=== PATIENT | female | born 1935 | race Caucasian/White ===

== ENCOUNTER 2016-12-24 12:50 | Inpatient (IN) | payer MEDICARE ==
[2016-12-24] MEDS ORDERED: Sodium Chloride 0.9% 10 ML Syringe FLUSH PRN (12:59)
--- NOTE | 2016-12-24 13:22 | EDM.PDOC ---
ED HPI GENERAL MEDICAL PROBLEM - General Chief Complaint: Neuro Symptoms/Deficits Stated Complaint: [facility] Time Seen by Provider: 12/24/16 12:50 Source of Information: Reports: EMS, [facility] Records History Limitations: Reports: Physical Impairment - History of Present Illness INITIAL COMMENTS - FREE TEXT/NARRATIVE: 81-year-old female presents via the [place] ambulance service from [facility] for a possible stroke. The patient's does not respond to questioning. History is obtained from EMS staff and long-term staff. I spoke with [facility] RN Marissa. She was taking care of the patient today. States that this morning she got up for breakfast between 7 and 8 and ate breakfast okay. She normally pivot transfers and does this without difficulty. They did not appreciate any motor deficits this morning. She states that she took her morning medications. They did feel that she was more congested than normal. They then laid her down for nap. Around 11:30 the INJECTION PRESS OPERATOR alerted Marissa to her decrease in motor function. She was sitting on the bed but they felt that they observed right-sided weakness. They also noticed a droop to her face. She would not follow commands and could not squeeze the nurse's fingers. Her speech was garbled. She was crying. States that her baseline is normally alert 2 and she is able to state her name. They felt that her weakness was a significant decline from her normal status. They then contacted Dr. Orlando who instructed them to bring and to the ER. No vomiting or diarrhea. Nursing staff reports that she normally has some incontinence but reports that around 11:30 she had a large amount of urinary incontinence which is abnormal for her. Vitals at the long-term included a temp of 100.4, blood pressure 120/69, heart rate is 78, respirations of 16 and 90% 2% on room air. Patient takes an 81 mg aspirin daily. Patient has a history of Alzheimer's and dementia. She is a DNR/DNI. - Related Data Allergies Allergy/AdvReac Type Severity Reaction Status Date / Time No Known Allergies Allergy Verified 02/02/15 09:55 ED ROS GENERAL - Review of Systems Review Of Systems: See Below (obtained from [facility] staff and EMS) Constitutional: Reports: Fever (100.4 at long-term), Weakness (right sided) GI/Abdominal: Denies: Diarrhea, Vomiting : Reports: Incontinence Neurological: Reports: Trouble Speaking (garbled speech), Weakness (right sided) , Other (right sided facial droop) ED EXAM, NEURO - Physical Exam Exam: See Below General Appearance: Alert, WD/WN, Anxious Eye Exam: Bilateral Eye: PERRL Respiratory/Chest: No Respiratory Distress, Lungs Clear, Normal Breath Sounds Cardiovascular: Normal Peripheral Pulses, Regular Rate, Rhythm, No Murmur GI/Abdominal: Soft, Non-Tender Neurological: Alert, Straight Leg Raise (L) (unable to preform), Straight Leg Raise (R) (unable to preform), Other (weatherization and housing inspector 5/5 right and 3/5 left; right sided facial droop ; unable to follow commands). No: Babinski Psychiatric: Anxious Skin Exam: Warm, Dry EKG INTERPRETATION EKG Date: 12/24/16 Course - Vital Signs Last Recorded V/S: Last Vital Signs Temp 36.9 C 12/24/16 12:59 Pulse 77 12/24/16 12:59 Resp 28 H 12/24/16 12:59 BP 115/62 12/24/16 12:59 Pulse Ox 93 L 12/24/16 12:59 - Orders/Labs/Meds Orders: Active Orders 24 hr Category Date Time Status Cardiac Monitoring [RC] . DIRECTED Care 12/24/16 12:59 Active EKG Documentation Completion [RC] STAT Care 12/24/16 12:59 Active Peripheral IV Care [RC] . DIRECTED Care 12/24/16 12:59 Active Chest 1V Frontal [CR] Stat Exams 12/24/16 12:59 Taken CULTURE BLOOD [BC] Stat Lab 12/24/16 13:20 Received CULTURE BLOOD [BC] Stat Lab 12/24/16 13:30 Received CULTURE URINE [RM] Stat Lab 12/24/16 14:16 Received INR,PT,PROTHROMBIN TIME [COAG] Stat Lab 12/24/16 13:54 Ordered PTT,PARTIAL THROMBOPLSTIN TIME [COAG] Stat Lab 12/24/16 13:54 Ordered Sodium Chloride 0.9% [Normal Saline] 1,000 ml Med 12/24/16 13:23 Active IV ONETIME Sodium Chloride 0.9% [Saline Flush] Med 12/24/16 12:59 Active 10 ml FLUSH ASDIRECTED PRN Blood Culture x2 Reflex Set [OM.PC] Stat Oth 12/24/16 12:59 Ordered Peripheral IV Insertion Adult [OM.PC] Routine Oth 12/24/16 12:58 Ordered Medication Orders Sodium Chloride (Normal Saline) 1,000 mls @ 100 mls/hr IV ONETIME ONE Stop: 12/24/16 23:22 Last Admin: 12/24/16 14:01 Dose: 100 mls/hr Sodium Chloride (Saline Flush) 10 ml FLUSH ASDIRECTED PRN PRN Reason: Keep Vein Open Last Admin: 12/24/16 14:02 Dose: 10 ml Labs: Laboratory Tests 12/24/16 12/24/16 12/24/16 Range/Units 13:04 13:30 13:30 WBC (3.98-10.04) K/mm3 RBC (3.98-5.22) M/mm3 Hgb (11.2-15.7) gm/L Hct (34.1-44.9) % MCV (79.4-94.8) fl MCH (25.6-32.2) pg MCHC (32.2-35.5) g/dl RDW Std Deviation (36.4-46.3) fL Plt Count (182-369) K/mm3 MPV (9.4-12.3) fl Neutrophils % (Manual) (40-60) % Band Neutrophils % (0-10) % Lymphocytes % (Manual) (20-40) % Atypical Lymphs % % Monocytes % (Manual) (2-10) % Eosinophils % (Manual) (0.7-5.8) % Basophils % (Manual) (0.1-1.2) Platelet Estimate RBC Morph Comment Sodium 139 (136-145) mEq/L Potassium 4.5 (3.5-5.1) mEq/L Chloride 102 (98-107) mEq/L Carbon Dioxide 29 (21-32) mEq/L Anion Gap 12.5 (5-15) BUN 19 H (7-18) mg/dL Creatinine 1.3 H (0.55-1.02) mg/dL Est Cr Clr Drug Dosing 28.67 mL/min Estimated GFR (MDRD) 39 (>60) mL/min BUN/Creatinine Ratio 14.6 (14-18) Glucose 90 (83-115) mg/dL POC Glucose 84 (83-110) mg/dL Lactic Acid 2.1 H (0.4-2.0) mmol/L Calcium 8.9 (8.5-10.1) mg/dL Total Bilirubin 0.7 (0.2-1.0) mg/dL AST 20 (15-37) U/L ALT 28 (14-59) U/L Alkaline Phosphatase 107 (46-116) U/L Troponin I < 0.017 (0.00-0.056) ng/mL C-Reactive Protein 2.8 H* (<1.0) mg/dL B-Natriuretic Peptide (0-100) pg/mL Total Protein 6.9 (6.4-8.2) g/dl Albumin 3.3 L (3.4-5.0) g/dl Globulin 3.6 gm/dL Albumin/Globulin Ratio 0.9 L (1-2) Urine Color (Yellow) Urine Appearance (Clear) Urine pH (5.0-8.0) Ur Specific [place] (1.005-1.030) Urine Protein (Negative) Urine Glucose (UA) (Negative) Urine Ketones (Negative) Urine Occult Blood (Negative) Urine Nitrite (Negative) Urine Bilirubin (Negative) Urine Urobilinogen (0.2-1.0) Ur Leukocyte Esterase (Negative) Urine RBC (0-5) /hpf Urine WBC (0-5) /hpf Ur Epithelial Cells (0-5) /hpf Urine Bacteria (FEW) /hpf Urine Mucus (FEW) /hpf 12/24/16 12/24/16 12/24/16 Range/Units 13:30 13:30 14:16 WBC 8.49 (3.98-10.04) K/mm3 RBC 5.03 (3.98-5.22) M/mm3 Hgb 14.8 (11.2-15.7) gm/L Hct 45.5 H (34.1-44.9) % MCV 90.5 (79.4-94.8) fl MCH 29.4 (25.6-32.2) pg MCHC 32.5 (32.2-35.5) g/dl RDW Std Deviation 43.6 (36.4-46.3) fL Plt Count 207 (182-369) K/mm3 MPV 9.3 L (9.4-12.3) fl Neutrophils % (Manual) 75 H (40-60) % Band Neutrophils % 2 (0-10) % Lymphocytes % (Manual) 12 L (20-40) % Atypical Lymphs % 0 % Monocytes % (Manual) 8 (2-10) % Eosinophils % (Manual) 2 (0.7-5.8) % Basophils % (Manual) 1 (0.1-1.2) Platelet Estimate Adequate RBC Morph Comment Normal Sodium (136-145) mEq/L Potassium (3.5-5.1) mEq/L Chloride (98-107) mEq/L Carbon Dioxide (21-32) mEq/L Anion Gap (5-15) BUN (7-18) mg/dL Creatinine (0.55-1.02) mg/dL Est Cr Clr Drug Dosing mL/min Estimated GFR (MDRD) (>60) mL/min BUN/Creatinine Ratio (14-18) Glucose (83-115) mg/dL POC Glucose (83-110) mg/dL Lactic Acid (0.4-2.0) mmol/L Calcium (8.5-10.1) mg/dL Total Bilirubin (0.2-1.0) mg/dL AST (15-37) U/L ALT (14-59) U/L Alkaline Phosphatase (46-116) U/L Troponin I (0.00-0.056) ng/mL C-Reactive Protein (<1.0) mg/dL B-Natriuretic Peptide 200 H (0-100) pg/mL Total Protein (6.4-8.2) g/dl Albumin (3.4-5.0) g/dl Globulin gm/dL Albumin/Globulin Ratio (1-2) Urine Color Yellow (Yellow) Urine Appearance Clear (Clear) Urine pH 7.0 (5.0-8.0) Ur Specific [place] 1.020 (1.005-1.030) Urine Protein Negative (Negative) Urine Glucose (UA) Negative (Negative) Urine Ketones Negative (Negative) Urine Occult Blood Negative (Negative) Urine Nitrite Negative (Negative) Urine Bilirubin Negative (Negative) Urine Urobilinogen 0.2 (0.2-1.0) Ur Leukocyte Esterase Negative (Negative) Urine RBC 0-5 (0-5) /hpf Urine WBC 0-5 (0-5) /hpf Ur Epithelial Cells 0-5 (0-5) /hpf Urine Bacteria Rare (FEW) /hpf Urine Mucus Not seen (FEW) /hpf Meds: Medications Generic Name Dose Route Start Last Admin Trade Name Justine PRN Reason Stop Dose Admin Sodium Chloride 1,000 mls @ 100 mls/hr 12/24/16 13:23 12/24/16 14:01 Normal Saline IV 12/24/16 23:22 100 mls/hr ONETIME ONE Administration Sodium Chloride 10 ml 12/24/16 12:59 12/24/16 14:02 Saline Flush FLUSH 10 ml ASDIRECTED PRN Administration Keep Vein Open - Radiology Interpretation Free Text/Narrative:: CT of the head without contrast impression per Dr. Salter: 1. Senescent change as described. 2. Findings within the inferior left mastoid sinus most likely incidental 3. No acute intracranial abnormality is identified on noncontrast head Ct study. - Re-Assessments/Exams Free Text/Narrative Re-Assessment/Exam: 12/24/16 13:45 At this time the patient's neighbor and power of employment attorney Jesenia are present at the bedside. I reviewed the CT results with Jesenia. It does appear that she more than likely had a stroke. Unfortunately, her last known well time is somewhere between 7 and 8 she is out of window for thrombolytic therapy. Our options are to go to [place] to the stroke center or stay in [place]. Jesenia states that jen would not want to go to [place] for further intervention. She does not want any drastic medical treatment. Jesenia would like her to be admitted to our facility for management and care of her symptoms. 12/24/16 15:13 I have reexamined the patient. She is now responding more appropriately. She correctly states her name. She correctly identifies that she is in the hospital. Her weatherization and housing inspector is improved substantially on the left and is about 4.5 on the left and 5 out of 5 on the right. She is now able to follow commands. She lifts both of her legs on command and is able to hold them for several seconds. 12/24/16 15:51 Lab studies have returned. white blood cell count 8.49, hemoglobin 14.8 and platelets 208. Lactic acid mildly elevated at 2.1. Troponin within normal limits at less than 0.017. BNP 200. CRPmildly elevated 2.8. Sodium 139, potassium 4.5 chloride 102. Glucose 90. Creatinine 1.3. UA is negative for any blood, protein, nitrites, leukocytes or glucose. Awaiting PIT, INR and PTT - lab called and stated the analyzer is found we'll be several hours for these lab studies. I have spoken with Dr. Johns regarding the patient. They do not want intervention at [place]. The patient is now improving. It appears that she is more of a TIA than a stroke. We will admit her to [facility]. Dr. Johns accepting. Departure - Departure Time of Disposition: 15:54 Disposition: Admitted As Inpatient 65 Condition: Fair Clinical Impression: TIA (transient ischemic attack) - Discharge Information Forms: ED Department Discharge Additional Instructions: Patient admitted to the med/surg floor. Dr. Johns accepting. - My Orders Last 24 Hours: My Active Orders 12/24/16 12:58 Peripheral IV Insertion Adult [OM.PC] Routine 12/24/16 12:59 Cardiac Monitoring [RC] . DIRECTED EKG Documentation Completion [RC] STAT Peripheral IV Care [RC] . DIRECTED Chest 1V Frontal [CR] Stat Sodium Chloride 0.9% [Saline Flush] 10 ml FLUSH ASDIRECTED PRN Blood Culture x2 Reflex Set [OM.PC] Stat 12/24/16 13:20 CULTURE BLOOD [BC] Stat 12/24/16 13:23 Sodium Chloride 0.9% [Normal Saline] 1,000 ml IV ONETIME 12/24/16 13:30 CULTURE BLOOD [BC] Stat 12/24/16 13:54 INR,PT,PROTHROMBIN TIME [COAG] Stat PTT,PARTIAL THROMBOPLSTIN TIME [COAG] Stat 12/24/16 14:16 CULTURE URINE [RM] Stat - Assessment/Plan Last 24 Hours: My Active Orders 12/24/16 12:58 Peripheral IV Insertion Adult [OM.PC] Routine 12/24/16 12:59 Cardiac Monitoring [RC] . DIRECTED EKG Documentation Completion [RC] STAT Peripheral IV Care [RC] . DIRECTED Chest 1V Frontal [CR] Stat Sodium Chloride 0.9% [Saline Flush] 10 ml FLUSH ASDIRECTED PRN Blood Culture x2 Reflex Set [OM.PC] Stat 12/24/16 13:20 CULTURE BLOOD [BC] Stat 12/24/16 13:23 Sodium Chloride 0.9% [Normal Saline] 1,000 ml IV ONETIME 12/24/16 13:30 CULTURE BLOOD [BC] Stat 12/24/16 13:54 INR,PT,PROTHROMBIN TIME [COAG] Stat PTT,PARTIAL THROMBOPLSTIN TIME [COAG] Stat 12/24/16 14:16 CULTURE URINE [RM] Stat
[2016-12-24] MEDS ORDERED: Sodium Chloride 0.9% 1,000 ML IV ONE (13:23)
--- NOTE | 2016-12-24 13:34 | CT ---
Head CT Technique: Multiple axial sections through the brain were obtained. Intravenous contrast was not utilized. Comparison: No previous intracranial imaging is available. Findings: Ventricles along with basal cisterns and sulci over the convexities are moderately prominent. Diminished density is seen within the periventricular and subcortical white matter which has a pattern typical of small vessel ischemic demyelination change. Focal atrophy is seen within the posterior left parietal region felt compatible with small old infarct. No other abnormal parenchymal densities are seen. No evidence of intracranial hemorrhage. No midline shift or mass effect is seen. Atherosclerotic calcification is seen within the carotid siphon. Bone window settings were reviewed which shows minimal mucosal thickening inferiorly within the left mastoid sinus which is likely incidental. No acute calvarial abnormality is appreciated. Impression: 1. Senescent change as described above. 2. Finding within the inferior left mastoid sinus most likely incidental. 3. No acute intracranial abnormality is identified on noncontrast head CT study. Diagnostic code #2
--- NOTE | 2016-12-24 16:27 | PCM.HP ---
H&P History of Present Illness - General Date of Service: 12/24/16 Source of Information: Provider History Limitations: Reports: No Limitations, Altered Mental Status - History of Present Illness Initial Comments - Free Text/Narative: 81 year old female has been admitted for CVA/TIA. Developed AMS on the day of admission. She devloped right sided weakness. She is a DNR/DNI. Additional information from the SNF report includes elevated temp 100.4F. Onset of Symptoms: Reports: Sudden Symptom Onset Date: 12/24/16 Duration of Symptoms: Reports: Hour(s):, Getting Worse Location: Reports: Head, Upper Extremity, Right Severity: Moderate Improves with: Reports: None Worsens with: Reports: None Associated Symptoms: Reports: Confusion, Headaches (no) - Related Data Allergies/Adverse Reactions: Allergies Allergy/AdvReac Type Severity Reaction Status Date / Time No Known Allergies Allergy Verified 02/02/15 09:55 Home Medications: Home Meds Acetaminophen 650 mg PO Q6H PRN 12/24/16 [History] Aspirin 324 mg PO DAILY 12/24/16 [History] Bisacodyl [Dulcolax] 10 mg PO DAILY PRN 12/24/16 [History] Bisacodyl [Dulcolax] 10 mg RECTAL DAILY PRN 12/24/16 [History] Docusate Sodium/Sennosides [Senna Plus] 1 tab PO BID 12/24/16 [History] Ipratropium/Albuterol Sulfate [Combivent Respimat Inhal [place]] 4 gm IH QID 12/24 [History] Memantine HCl [Namenda] 5 mg PO DAILY 12/24/16 [History] Metoprolol Succinate 50 mg PO DAILY 12/24/16 [History] Omeprazole 20 mg PO DAILY 12/24/16 [History] Simethicone 80 mg PO TID 12/24/16 [History] Past Medical History HEENT History: Reports: Other (See Below) Other HEENT History: dysphagia Cardiovascular History: Reports: Hypertension Genitourinary History: Reports: Urinary Incontinence Musculoskeletal History: Reports: Arthritis, Other (See Below) Other Musculoskeletal History: contractures, muscle weakness, unspecified abnormalities of gait and mobility Neurological History: Reports: Other (See Below) Other Neuro History: tremors Psychiatric History: Reports: Alzheimers Disease, Anxiety, Dementia, Psychosis , Schizophrenia, Other (See Below) Other Psychiatric History: unspecified mental disorder due to physiological condition Hematologic History: Reports: Other (See Below) Other Hematologic History: take a baby aspirin Dermatologic History: Reports: Other (See Below) Other Dermatologic History: chronic ecchymosis Social & Family History - Family History Family Medical History: Noncontributory - Tobacco Use Smoking Status *Q: Former Smoker Used Tobacco, but Quit: No - Caffeine Use Caffeine Use: Reports: Coffee - Recreational Drug Use Recreational Drug Use: No H&P Review of Systems - Review of Systems: Review Of Systems: See Below General: Reports: Weakness HEENT: Reports: No Symptoms Pulmonary: Reports: No Symptoms Cardiovascular: Reports: No Symptoms Gastrointestinal: Reports: No Symptoms Genitourinary: Reports: No Symptoms Musculoskeletal: Reports: No Symptoms Skin: Reports: No Symptoms Psychiatric: Reports: No Symptoms Neurological: Reports: Confusion, Trouble Speaking, Weakness Hematologic/Lymphatic: Reports: No Symptoms Immunologic: Reports: No Symptoms Exam - Exam Exam: See Below - Vital Signs Vital Signs: Last Vital Signs Temp 36.9 C 12/24/16 12:59 Pulse 77 12/24/16 12:59 Resp 28 H 12/24/16 12:59 BP 115/62 12/24/16 12:59 Pulse Ox 93 L 12/24/16 12:59 Weight: 54.431 kg - Exam Quality Assessment: DVT Prophylaxis General: Lethargic HEENT: Nares Patent, Normal Nasal Septum, Pupils Equal, Pupils Reactive Neck: Supple, Trachea Midline Lungs: Normal Respiratory Effort Cardiovascular: Regular Rate Abdomen: Normal Bowel Sounds, Soft (Female) Exam: Deferred Rectal (Female) Exam: Deferred Back Exam: Normal Inspection Extremities: Normal Pulses Skin: Warm Neurological: Other (right sided facial droop) Neuro Extensive - Mental Status: Slow Response to Commands - Patient Data Result Diagrams: 12/24/16 13:30 12/24/16 13:30 *Q Meaningful Use (ADM) - VTE *Q VTE Criteria *Q: - Stroke *Q Stroke Criteria *Q: - AMI *Q AMI Criteria *Q: - Problem List (1) Dementia SNOMED Code(s): 76982893 ICD Code: F03.90 - UNSPECIFIED DEMENTIA WITHOUT BEHAVIORAL DISTURBANCE Status: Acute Current Visit: Yes (2) Febrile SNOMED Code(s): 583563091 ICD Code: R50.9 - FEVER, UNSPECIFIED Status: Acute Current Visit: Yes (3) TIA (transient ischemic attack) SNOMED Code(s): 494805549, 126079162 ICD Code: G45.9 - TRANSIENT CEREBRAL ISCHEMIC ATTACK, UNSPECIFIED Status: Acute Current Visit: Yes Problem List Initiated/Reviewed/Updated: Yes Orders Last 24hrs: Medication Orders Sodium Chloride (Normal Saline) 1,000 mls @ 100 mls/hr IV ONETIME ONE Stop: 12/24/16 23:22 Last Admin: 12/24/16 14:01 Dose: 100 mls/hr Sodium Chloride (Saline Flush) 10 ml FLUSH ASDIRECTED PRN PRN Reason: Keep Vein Open Last Admin: 12/24/16 14:02 Dose: 10 ml Assessment/Plan Comment:: Impression/Plan: CVA/TIA, 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 Lipid status unknown Alzheimer Dementia CVA protocol Carotid 2D echo Repeat CT of head Lipid panel Daily labs Swallow eval SW/PT/OT Inpatient rehab if needed DNR/DNI DVT/GI prophylaxis
[2016-12-24] MEDS ORDERED: Bisacodyl 5 MG Tab PO PRN (17:11)
--- NOTE | 2016-12-25 07:50 | CR ---
Chest: Portable view of the chest was obtained. Comparison: No previous study. Heart size appears within normal limits for portable technique. Tortuous thoracic aorta is noted. Lungs are clear with no acute infiltrates. Bony structures are osteopenic. Scoliosis is present within the spine. Impression: 1. Incidental findings. Nothing acute is identified. Diagnostic code #2
[2016-12-25] MEDS ORDERED: Enoxaparin 30 MG/0.3 ML Syringe SUBCUT SCH (09:00)
[2016-12-25] MEDS ORDERED: Diphtheria,Pertussis(Acell),Tetanus Vaccine 0.5 ML SDV inactive IM ONE (09:00)
[2016-12-25] MEDS: Memantine 10 MG Tab PO SCH (10:17)
[2016-12-25] MEDS: Metoprolol Succinate 50 MG Tab.ER PO SCH (10:17)
[2016-12-25] MEDS ORDERED: Enoxaparin 40 MG/0.4 ML Syringe SUBCUT SCH (11:38)
--- NOTE | 2016-12-25 13:20 | PCM.PN ---
<Sydney Shah M - Last Filed: 12/25/16 13:14> - General Info Date of Service: 12/25/16 Admission Dx/Problem (Free Text): Elana is seen this morning on team rounding. She is undergoing echocardiogram this morning. Functional Status: Reports: pain controlled, ambulating, urinating, other ( awaiting INVESTIGATIONS CHIEF for swallow study for diet recommendations) - Review of Systems General: Reports: No Symptoms HEENT: Reports: no symptoms Pulmonary: Reports: no symptoms. Denies: shortness of breath Cardiovascular: Reports: No Symptoms. Denies: Chest Pain Gastrointestinal: Reports: No symptoms Neurological: Reports: Confusion (dementia- baseline) Psychiatric: Reports: confusion (dementia- baseline) - Patient Data Vitals - most recent: Last Vital Signs Temp 99.3 F 12/25/16 07:59 Pulse 65 12/25/16 10:17 Resp 16 12/25/16 07:59 BP 113/70 12/25/16 10:17 Pulse Ox 90 L 12/25/16 07:59 Weight - most recent: 75.387 kg I&O - last 24 hours: Intake & Output 12/24/16 12/25/16 12/25/16 22:59 06:59 14:59 Intake Total 1000 Output Total 3 Balance 997 Lab Results last 24 hrs: Laboratory Results - last 24 hr 12/25/16 12/25/16 Range/Units 06:20 06:20 WBC 4.71 (3.98-10.04) K/mm3 RBC 4.93 (3.98-5.22) M/mm3 Hgb 14.0 (11.2-15.7) gm/L Hct 44.4 (34.1-44.9) % MCV 90.1 (79.4-94.8) fl MCH 28.4 (25.6-32.2) pg MCHC 31.5 L (32.2-35.5) g/dl RDW Std Deviation 43.3 (36.4-46.3) fL Plt Count 205 (182-369) K/mm3 MPV 9.5 (9.4-12.3) fl Neut % (Auto) 67.1 (34.0-71.1) % Lymph % (Auto) 15.5 L (19.3-51.7) % Robertson % (Auto) 15.3 H (4.7-12.5) % Eos % (Auto) 1.1 (0.7-5.8) Baso % (Auto) 0.8 (0.1-1.2) % Neut # (Auto) 3.16 (1.56-6.13) K/mm3 Lymph # (Auto) 0.73 L (1.18-3.74) K/mm3 Robertson # (Auto) 0.72 H (0.24-0.36) K/mm3 Eos # (Auto) 0.05 (0.04-0.36) K/mm3 Baso # (Auto) 0.04 (0.01-0.08) K/mm3 Manual Slide Review Normal smear Sodium 137 (136-145) mEq/L Potassium 4.1 (3.5-5.1) mEq/L Chloride 105 (98-107) mEq/L Carbon Dioxide 24 (21-32) mEq/L Anion Gap 12.1 (5-15) BUN 15 (7-18) mg/dL Creatinine 1.0 (0.55-1.02) mg/dL Est Cr Clr Drug Dosing 37.45 mL/min Estimated GFR (MDRD) 53 (>60) mL/min BUN/Creatinine Ratio 15.0 (14-18) Glucose 89 (83-115) mg/dL Calcium 8.2 L (8.5-10.1) mg/dL Triglycerides 42 (<150) mg/dL Cholesterol 128 (<200) mg/dL LDL Cholesterol Direct 85 (<100) mg/dL HDL Cholesterol 44.0 (40-59) mg/dL Med Orders - Current: Current Medications Bisacodyl (Dulcolax) 10 mg PO DAILY PRN PRN Reason: Constipation Enoxaparin Sodium (Lovenox) 40 mg SUBCUT DAILY [facility] Memantine (Namenda) 5 mg PO DAILY [facility] Last Admin: 12/25/16 10:17 Dose: 5 mg Metoprolol Succinate (Toprol Xl) 25 mg PO DAILY [facility] Last Admin: 12/25/16 10:17 Dose: 25 mg Senna/Docusate Sodium (Senna Plus) 1 tab PO BID [facility] Last Admin: 12/25/16 10:17 Dose: 1 tab Sodium Chloride (Saline Flush) 10 ml FLUSH ASDIRECTED PRN PRN Reason: Keep Vein Open Last Admin: 06/20/17 14:02 Dose: 10 ml Discontinued Medications Diphtheria/Tetanus/Acell Pertussis (Boostrix) 0.5 ml IM .ONCE ONE Stop: 12/25/16 09:01 Enoxaparin Sodium (Lovenox) 30 mg SUBCUT DAILY [facility] Last Admin: 12/25/16 10:16 Dose: 30 mg Sodium Chloride (Normal Saline) 1,000 mls @ 100 mls/hr IV ONETIME ONE Stop: 12/24/16 23:22 Last Admin: 12/24/16 14:01 Dose: 100 mls/hr - Exam Quality Assessment: DVT prophylaxis General: alert, cooperative, no acute distress HEENT: Pupils equal, Pupils reactive, EOMI, Mucous membr. moist/pink Neck: supple Lungs: Clear to auscultation, Normal respiratory effort Cardiovascular: Regular Rate, Regular Rhythm Abdomen: bowel sounds present, soft, no tenderness, no distension Neurological: no new focal deficit Psy/Mental Status: alert, normal mood (pleasantly confused- baseline dementia) - Problem List & Annotations (1) TIA (transient ischemic attack) SNOMED Code(s): 239236006, 462719557 Code(s): G45.9 - TRANSIENT CEREBRAL ISCHEMIC ATTACK, UNSPECIFIED Status: Acute Priority: High Current Visit: Yes Qualifiers: Transient cerebral ischemia type: unspecified Qualified Code(s): G45.9 - Transient cerebral ischemic attack, unspecified (2) Febrile SNOMED Code(s): 136257143 Code(s): R50.9 - FEVER, UNSPECIFIED Status: Acute Priority: High Current Visit: Yes Qualifiers: Fever type: unspecified Qualified Code(s): R50.9 - Fever, unspecified (3) Dementia SNOMED Code(s): 35761014 Code(s): F03.90 - UNSPECIFIED DEMENTIA WITHOUT BEHAVIORAL DISTURBANCE Status: Chronic Priority: Medium Current Visit: Yes - Problem List Review Problem List Initiated/Reviewed/Updated: Yes - My Orders Last 24 Hours: My Active Orders 12/25/16 Breakfast National Dysphagia Diet [DIET] - Plan Plan:: Impression/Plan: CVA/TIA, 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; no residual defects now--repeat head CT [address] scan Lipid status: excellent Alzheimer Dementia- baseline CVA protocol Carotid today- results pending 2D echo today- results pending Repeat CT of head Lipid panel Daily labs Swallow eval- NDD2 ground with nectar thick per INVESTIGATIONS CHIEF recommendations SW/PT/OT Inpatient rehab if needed DVT/GI prophylaxis CM/SW for assistance with DC planning Patient is DNR/DNI <Billie Johns Kelly - Last Filed: 12/25/16 13:39> - Patient Data Vitals - most recent: Last Vital Signs Temp 37.4 C 12/25/16 07:59 Pulse 65 12/25/16 10:17 Resp 16 12/25/16 07:59 BP 113/70 12/25/16 10:17 Pulse Ox 90 L 12/25/16 07:59 I&O - last 24 hours: Intake & Output 12/24/16 12/25/16 12/25/16 22:59 06:59 14:59 Intake Total 1000 Output Total 3 Balance 997 Lab Results last 24 hrs: Laboratory Results - last 24 hr 12/25/16 12/25/16 Range/Units 06:20 06:20 WBC 4.71 (3.98-10.04) K/mm3 RBC 4.93 (3.98-5.22) M/mm3 Hgb 14.0 (11.2-15.7) gm/L Hct 44.4 (34.1-44.9) % MCV 90.1 (79.4-94.8) fl MCH 28.4 (25.6-32.2) pg MCHC 31.5 L (32.2-35.5) g/dl RDW Std Deviation 43.3 (36.4-46.3) fL Plt Count 205 (182-369) K/mm3 MPV 9.5 (9.4-12.3) fl Neut % (Auto) 67.1 (34.0-71.1) % Lymph % (Auto) 15.5 L (19.3-51.7) % Robertson % (Auto) 15.3 H (4.7-12.5) % Eos % (Auto) 1.1 (0.7-5.8) Baso % (Auto) 0.8 (0.1-1.2) % Neut # (Auto) 3.16 (1.56-6.13) K/mm3 Lymph # (Auto) 0.73 L (1.18-3.74) K/mm3 Robertson # (Auto) 0.72 H (0.24-0.36) K/mm3 Eos # (Auto) 0.05 (0.04-0.36) K/mm3 Baso # (Auto) 0.04 (0.01-0.08) K/mm3 Manual Slide Review Normal smear Sodium 137 (136-145) mEq/L Potassium 4.1 (3.5-5.1) mEq/L Chloride 105 (98-107) mEq/L Carbon Dioxide 24 (21-32) mEq/L Anion Gap 12.1 (5-15) BUN 15 (7-18) mg/dL Creatinine 1.0 (0.55-1.02) mg/dL Est Cr Clr Drug Dosing 37.45 mL/min Estimated GFR (MDRD) 53 (>60) mL/min BUN/Creatinine Ratio 15.0 (14-18) Glucose 89 (83-115) mg/dL Calcium 8.2 L (8.5-10.1) mg/dL Triglycerides 42 (<150) mg/dL Cholesterol 128 (<200) mg/dL LDL Cholesterol Direct 85 (<100) mg/dL HDL Cholesterol 44.0 (40-59) mg/dL Med Orders - Current: Current Medications Bisacodyl (Dulcolax) 10 mg PO DAILY PRN PRN Reason: Constipation Enoxaparin Sodium (Lovenox) 40 mg SUBCUT DAILY [facility] Memantine (Namenda) 5 mg PO DAILY [facility] Last Admin: 12/25/16 10:17 Dose: 5 mg Metoprolol Succinate (Toprol Xl) 25 mg PO DAILY [facility] Last Admin: 12/25/16 10:17 Dose: 25 mg Senna/Docusate Sodium (Senna Plus) 1 tab PO BID [facility] Last Admin: 12/25/16 10:17 Dose: 1 tab Sodium Chloride (Saline Flush) 10 ml FLUSH ASDIRECTED PRN PRN Reason: Keep Vein Open Last Admin: 12/24/16 14:02 Dose: 10 ml Discontinued Medications Diphtheria/Tetanus/Acell Pertussis (Boostrix) 0.5 ml IM .ONCE ONE Stop: 12/25/16 09:01 Enoxaparin Sodium (Lovenox) 30 mg SUBCUT DAILY [facility] Last Admin: 12/25/16 10:16 Dose: 30 mg Sodium Chloride (Normal Saline) 1,000 mls @ 100 mls/hr IV ONETIME ONE Stop: 12/24/16 23:22 Last Admin: 12/24/16 14:01 Dose: 100 mls/hr - Problem List & Annotations (1) Dementia SNOMED Code(s): 43606449 Code(s): F03.90 - UNSPECIFIED DEMENTIA WITHOUT BEHAVIORAL DISTURBANCE Status: Chronic Priority: Medium Current Visit: Yes (2) Febrile SNOMED Code(s): 897751049 Code(s): R50.9 - FEVER, UNSPECIFIED Status: Acute Priority: High Current Visit: Yes Qualifiers: Fever type: unspecified Qualified Code(s): R50.9 - Fever, unspecified (3) TIA (transient ischemic attack) SNOMED Code(s): 685227204, 672499226 Code(s): G45.9 - TRANSIENT CEREBRAL ISCHEMIC ATTACK, UNSPECIFIED Status: Acute Priority: High Current Visit: Yes Qualifiers: Transient cerebral ischemia type: unspecified Qualified Code(s): G45.9 - Transient cerebral ischemic attack, unspecified - My Orders Last 24 Hours: My Active Orders 12/24/16 17:01 Aspiration Precautions [RC] ASDIRECTED 12/24/16 17:03 Vital Signs [RC] 03,09,15,21 12/24/16 17:04 Bedrest [RC] BID Consult to Collet Driller [CONS] Routine 12/24/16 17:06 Neuro Check [RC] 04,10,16,22 12/24/16 17:09 Antiembolic Devices [RC] BID GARY Hose [Antiembolic Hose] [OM.PC] Routine 12/24/16 17:11 Bisacodyl [Dulcolax] 10 mg PO DAILY PRN 12/24/16 18:43 Vaccines to be Administered [RC] PER UNIT ROUTINE 12/24/16 20:27 Code Status [Resuscitation Status] Routine 12/24/16 21:00 Docusate Sodium/Sennosides [Senna Plus] 1 tab PO BID 12/25/16 09:00 Consult to Speech Language Pathology [INVESTIGATIONS CHIEF Evaluation and Treatment] [CONS] Routine Memantine [Namenda] 5 mg PO DAILY Metoprolol Succinate [Toprol XL] 25 mg PO DAILY 12/25/16 10:00 Consult to Occupational Therapy [OT Evaluation and Treatment] [CONS] Routine Consult to Physical Therapy [PT Evaluation and Treatment] [CONS] Routine Carotid Comp [US] Routine 12/25/16 11:38 Enoxaparin [Lovenox] 40 mg SUBCUT DAILY 12/26/16 05:00 BMP [BASIC METABOLIC PANEL,BMP] [CHEM] DAILY CBC WITH AUTO DIFF [HEME] DAILY 12/27/16 05:00 BMP [BASIC METABOLIC PANEL,BMP] [CHEM] DAILY CBC WITH AUTO DIFF [HEME] DAILY 12/28/16 05:00 BMP [BASIC METABOLIC PANEL,BMP] [CHEM] DAILY CBC WITH AUTO DIFF [HEME] DAILY - Plan Plan:: DC plan in progress; LOS~96 hours, will follow progress; see above for details.
--- NOTE | 2016-12-25 15:11 | US ---
Carotid ultrasound: Duplex and color flow imaging was obtained of the carotid arteries. Mild amount of heterogeneous plaque seen on both sides within the carotid bulb and origin of the internal carotid arteries worse on the right side. Velocity measurements right side: CCA has a peak systolic velocity of 0.51 m/s. ICA has a peak systolic velocity of 1.0 cm/s and peak end-diastolic velocity of 0.21 m/s. ECA has a peak systolic velocity of 1.73 m/s. Vertebral artery has a peak systolic velocity of 0.46/s. ICA/CCA ratio is 2.0. Left side: CCA has a peak systolic velocity of 0.54 m/s. ICA has a peak systolic velocity of 0.89 m/s and peak end-diastolic velocity of 0.22 m/s. ECA has a peak systolic velocity of 1.48 m/s. Vertebral artery has a peak systolic velocity of 0.47 m/s. ICA/CCA ratio is 1.6. Impression: 1. Plaque which is worse on the right side. 2. Velocity measurements within both internal carotid arteries which is felt to correspond to stenosis in the range of 1-49%. Diagnostic code #2
--- NOTE | 2016-12-26 07:32 | PCM.PN ---
<Sydney Shah M - Last Filed: 12/26/16 07:32> - General Info Date of Service: 12/26/16 Admission Dx/Problem (Free Text): Elana is seen this morning on team rounding. Functional Status: Reports: tolerating diet - Review of Systems General: Reports: Weakness (generalized) Pulmonary: Reports: no symptoms. Denies: shortness of breath, cough Cardiovascular: Reports: No Symptoms Gastrointestinal: Reports: No symptoms Neurological: Reports: No Symptoms Psychiatric: Reports: no symptoms - Patient Data Vitals - most recent: Last Vital Signs Temp 97.9 F 12/26/16 02:35 Pulse 69 12/26/16 02:35 Resp 18 12/26/16 02:35 BP 95/69 12/26/16 02:35 Pulse Ox 91 L 12/26/16 02:35 Weight - most recent: 52.889 kg I&O - last 24 hours: Intake & Output 12/25/16 12/26/16 12/26/16 22:59 06:59 14:59 Intake Total 0 120 Balance 0 120 Lab Results last 24 hrs: Laboratory Results - last 24 hr 12/25/16 12/25/16 12/26/16 Range/Units 06:20 06:20 05:55 WBC 4.71 5.27 (3.98-10.04) K/mm3 RBC 4.93 5.05 (3.98-5.22) M/mm3 Hgb 14.0 14.9 (11.2-15.7) gm/L Hct 44.4 45.1 H (34.1-44.9) % MCV 90.1 89.3 (79.4-94.8) fl MCH 28.4 29.5 (25.6-32.2) pg MCHC 31.5 L 33.0 (32.2-35.5) g/dl RDW Std Deviation 43.3 42.5 (36.4-46.3) fL Plt Count 205 204 (182-369) K/mm3 MPV 9.5 9.6 (9.4-12.3) fl Neut % (Auto) 67.1 65.2 (34.0-71.1) % Lymph % (Auto) 15.5 L 15.6 L (19.3-51.7) % Calloway % (Auto) 15.3 H 17.3 H (4.7-12.5) % Eos % (Auto) 1.1 1.1 (0.7-5.8) Baso % (Auto) 0.8 0.6 (0.1-1.2) % Neut # (Auto) 3.16 3.44 (1.56-6.13) K/mm3 Lymph # (Auto) 0.73 L 0.82 L (1.18-3.74) K/mm3 Calloway # (Auto) 0.72 H 0.91 H (0.24-0.36) K/mm3 Eos # (Auto) 0.05 0.06 (0.04-0.36) K/mm3 Baso # (Auto) 0.04 0.03 (0.01-0.08) K/mm3 Manual Slide Review Normal smear Normal smear Sodium 137 (136-145) mEq/L Potassium 4.1 (3.5-5.1) mEq/L Chloride 105 (98-107) mEq/L Carbon Dioxide 24 (21-32) mEq/L Anion Gap 12.1 (5-15) BUN 15 (7-18) mg/dL Creatinine 1.0 (0.55-1.02) mg/dL Est Cr Clr Drug Dosing 37.45 mL/min Estimated GFR (MDRD) 53 (>60) mL/min BUN/Creatinine Ratio 15.0 (14-18) Glucose 89 (83-115) mg/dL Calcium 8.2 L (8.5-10.1) mg/dL Triglycerides 42 (<150) mg/dL Cholesterol 128 (<200) mg/dL LDL Cholesterol Direct 85 (<100) mg/dL HDL Cholesterol 44.0 (40-59) mg/dL 12/26/16 Range/Units 05:55 WBC (3.98-10.04) K/mm3 RBC (3.98-5.22) M/mm3 Hgb (11.2-15.7) gm/L Hct (34.1-44.9) % MCV (79.4-94.8) fl MCH (25.6-32.2) pg MCHC (32.2-35.5) g/dl RDW Std Deviation (36.4-46.3) fL Plt Count (182-369) K/mm3 MPV (9.4-12.3) fl Neut % (Auto) (34.0-71.1) % Lymph % (Auto) (19.3-51.7) % Calloway % (Auto) (4.7-12.5) % Eos % (Auto) (0.7-5.8) Baso % (Auto) (0.1-1.2) % Neut # (Auto) (1.56-6.13) K/mm3 Lymph # (Auto) (1.18-3.74) K/mm3 Calloway # (Auto) (0.24-0.36) K/mm3 Eos # (Auto) (0.04-0.36) K/mm3 Baso # (Auto) (0.01-0.08) K/mm3 Manual Slide Review Sodium 139 (136-145) mEq/L Potassium 4.1 (3.5-5.1) mEq/L Chloride 103 (98-107) mEq/L Carbon Dioxide 24 (21-32) mEq/L Anion Gap 16.1 H (5-15) BUN 26 H (7-18) mg/dL Creatinine 1.1 H (0.55-1.02) mg/dL Est Cr Clr Drug Dosing 32.92 mL/min Estimated GFR (MDRD) 48 (>60) mL/min BUN/Creatinine Ratio 23.6 H (14-18) Glucose 78 L (83-115) mg/dL Calcium 8.5 (8.5-10.1) mg/dL Triglycerides (<150) mg/dL Cholesterol (<200) mg/dL LDL Cholesterol Direct (<100) mg/dL HDL Cholesterol (40-59) mg/dL Med Orders - Current: Current Medications Bisacodyl (Dulcolax) 10 mg PO DAILY PRN PRN Reason: Constipation Enoxaparin Sodium (Lovenox) 40 mg SUBCUT DAILY [facility] Memantine (Namenda) 5 mg PO DAILY [facility] Last Admin: 12/25/16 10:17 Dose: 5 mg Metoprolol Succinate (Toprol Xl) 25 mg PO DAILY [facility] Last Admin: 12/25/16 10:17 Dose: 25 mg Senna/Docusate Sodium (Senna Plus) 1 tab PO BID [facility] Last Admin: 12/25/16 22:02 Dose: Not Given Sodium Chloride (Saline Flush) 10 ml FLUSH ASDIRECTED PRN PRN Reason: Keep Vein Open Last Admin: 12/24/16 14:02 Dose: 10 ml Discontinued Medications Diphtheria/Tetanus/Acell Pertussis (Boostrix) 0.5 ml IM .ONCE ONE Stop: 12/25/16 09:01 Enoxaparin Sodium (Lovenox) 30 mg SUBCUT DAILY [facility] Last Admin: 12/25/16 10:16 Dose: 30 mg Sodium Chloride (Normal Saline) 1,000 mls @ 100 mls/hr IV ONETIME ONE Stop: 12/24/16 23:22 Last Admin: 12/24/16 14:01 Dose: 100 mls/hr - Exam Quality Assessment: DVT prophylaxis General: alert, cooperative, no acute distress HEENT: Pupils equal, EOMI, Mucous membr. moist/pink Neck: supple Lungs: Clear to auscultation, Normal respiratory effort Cardiovascular: Regular Rate, Regular Rhythm Abdomen: bowel sounds present, soft, no tenderness (Female) Exam: Deferred Extremities: no edema Peripheral Pulses: 1+: Dorsalis Pedis (L), Dorsalis Pedis (R) Neurological: no new focal deficit Psy/Mental Status: alert, normal affect, normal mood - Problem List & Annotations (1) TIA (transient ischemic attack) SNOMED Code(s): 451318378, 754805132 Code(s): G45.9 - TRANSIENT CEREBRAL ISCHEMIC ATTACK, UNSPECIFIED Status: Acute Priority: High Qualifiers: Transient cerebral ischemia type: unspecified Qualified Code(s): G45.9 - Transient cerebral ischemic attack, unspecified (2) Febrile SNOMED Code(s): 186303748 Code(s): R50.9 - FEVER, UNSPECIFIED Status: Resolved Priority: High Qualifiers: Fever type: unspecified Qualified Code(s): R50.9 - Fever, unspecified (3) Dementia SNOMED Code(s): 78046818 Code(s): F03.90 - UNSPECIFIED DEMENTIA WITHOUT BEHAVIORAL DISTURBANCE Status: Chronic Priority: Medium - Problem List Review Problem List Initiated/Reviewed/Updated: Yes - My Orders Last 24 Hours: My Active Orders 12/25/16 Breakfast National Dysphagia Diet [DIET] - Plan Plan:: Impression/Plan: CVA/TIA, 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; no residual defects now--repeat head CT this morning -Lipid status: excellent -Echo pending -Carotid US: 1-49% plaque noted, rt side >lt -SENIOR PRINCIPAL ARCHITECT for swallow Alzheimer Dementia- baseline Fever- resolved Other: CVA protocol Daily labs Swallow eval- NDD2 ground with nectar thick per SENIOR PRINCIPAL ARCHITECT recommendations PT/OT Inpatient rehab if needed DVT/GI prophylaxis CM/SW for assistance with DC planning--pending therapies recommendations, repeat head CT and echo results Patient is DNR/DNI <Billie Johns M - Last Filed: 12/27/16 13:33> - Patient Data Vitals - most recent: Last Vital Signs Temp 36.4 C 12/26/16 07:50 Pulse 80 12/26/16 08:02 Resp 20 12/26/16 07:50 BP 98/52 L 12/26/16 08:02 Pulse Ox 90 L 12/26/16 07:50 I&O - last 24 hours: Intake & Output 12/25/16 12/26/16 12/26/16 22:59 06:59 14:59 Intake Total 0 120 0 Balance 0 120 0 Lab Results last 24 hrs: Laboratory Results - last 24 hr 12/26/16 12/26/16 12/26/16 Range/Units 05:55 05:55 05:55 WBC 5.27 (3.98-10.04) K/mm3 RBC 5.05 (3.98-5.22) M/mm3 Hgb 14.9 (11.2-15.7) gm/L Hct 45.1 H (34.1-44.9) % MCV 89.3 (79.4-94.8) fl MCH 29.5 (25.6-32.2) pg MCHC 33.0 (32.2-35.5) g/dl RDW Std Deviation 42.5 (36.4-46.3) fL Plt Count 204 (182-369) K/mm3 MPV 9.6 (9.4-12.3) fl Neut % (Auto) 65.2 (34.0-71.1) % Lymph % (Auto) 15.6 L (19.3-51.7) % Calloway % (Auto) 17.3 H (4.7-12.5) % Eos % (Auto) 1.1 (0.7-5.8) Baso % (Auto) 0.6 (0.1-1.2) % Neut # (Auto) 3.44 (1.56-6.13) K/mm3 Lymph # (Auto) 0.82 L (1.18-3.74) K/mm3 Calloway # (Auto) 0.91 H (0.24-0.36) K/mm3 Eos # (Auto) 0.06 (0.04-0.36) K/mm3 Baso # (Auto) 0.03 (0.01-0.08) K/mm3 Manual Slide Review Normal smear Sodium 139 (136-145) mEq/L Potassium 4.1 (3.5-5.1) mEq/L Chloride 103 (98-107) mEq/L Carbon Dioxide 24 (21-32) mEq/L Anion Gap 16.1 H (5-15) BUN 26 H (7-18) mg/dL Creatinine 1.1 H (0.55-1.02) mg/dL Est Cr Clr Drug Dosing 32.92 mL/min Estimated GFR (MDRD) 48 (>60) mL/min BUN/Creatinine Ratio 23.6 H (14-18) Glucose 78 L (83-115) mg/dL Calcium 8.5 (8.5-10.1) mg/dL Magnesium 2.0 (1.8-2.4) mg/dl Med Orders - Current: Current Medications Aspirin (Ecotrin) 325 mg PO DAILY [facility] Last Admin: 12/26/16 08:01 Dose: 325 mg Bisacodyl (Dulcolax) 10 mg PO DAILY PRN PRN Reason: Constipation Enoxaparin Sodium (Lovenox) 40 mg SUBCUT DAILY [facility] Last Admin: 12/26/16 08:01 Dose: 40 mg Memantine (Namenda) 5 mg PO DAILY [facility] Last Admin: 12/26/16 08:01 Dose: 5 mg Metoprolol Succinate (Toprol Xl) 25 mg PO DAILY [facility] Last Admin: 12/26/16 08:02 Dose: Not Given Pantoprazole Sodium (Protonix) 40 mg PO DAILY@1600 [facility] Comovent Respimat ( Ipratropium/Albuterol Sulfate) Inhaler 0 each INH QID [facility] Last Admin: 12/26/16 13:30 Dose: Not Given Senna/Docusate Sodium (Senna Plus) 1 tab PO BID [facility] Last Admin: 12/26/16 08:01 Dose: 1 tab Simethicone (Simethicone) 80 mg PO ASDIRECTED PRN PRN Reason: Gas Sodium Chloride (Saline Flush) 10 ml FLUSH ASDIRECTED PRN PRN Reason: Keep Vein Open Last Admin: 12/24/16 14:02 Dose: 10 ml Discontinued Medications Diphtheria/Tetanus/Acell Pertussis (Boostrix) 0.5 ml IM .ONCE ONE Stop: 12/25/16 09:01 Enoxaparin Sodium (Lovenox) 30 mg SUBCUT DAILY [facility] Last Admin: 12/25/16 10:16 Dose: 30 mg Sodium Chloride (Normal Saline) 1,000 mls @ 100 mls/hr IV ONETIME ONE Stop: 12/24/16 23:22 Last Admin: 12/24/16 14:01 Dose: 100 mls/hr Simethicone (Simethicone) 80 mg PO TIDMEALS [facility] Last Admin: 12/26/16 11:35 Dose: Not Given - Problem List & Annotations (1) Dementia SNOMED Code(s): 42270810 Code(s): F03.90 - UNSPECIFIED DEMENTIA WITHOUT BEHAVIORAL DISTURBANCE Status: Chronic Priority: Medium (2) Febrile SNOMED Code(s): 976177358 Code(s): R50.9 - FEVER, UNSPECIFIED Status: Resolved Priority: High Qualifiers: Fever type: unspecified Qualified Code(s): R50.9 - Fever, unspecified (3) TIA (transient ischemic attack) SNOMED Code(s): 064243309, 076705045 Code(s): G45.9 - TRANSIENT CEREBRAL ISCHEMIC ATTACK, UNSPECIFIED Status: Acute Priority: High Qualifiers: Transient cerebral ischemia type: unspecified Qualified Code(s): G45.9 - Transient cerebral ischemic attack, unspecified - My Orders Last 24 Hours: My Active Orders 12/25/16 15:44 Communication Order [RC] ASDIRECTED 12/27/16 05:00 BMP [BASIC METABOLIC PANEL,BMP] [CHEM] DAILY CBC WITH AUTO DIFF [HEME] DAILY 12/28/16 05:00 BMP [BASIC METABOLIC PANEL,BMP] [CHEM] DAILY CBC WITH AUTO DIFF [HEME] DAILY - Plan Plan:: See above for A/P, agree as outlined.
[2016-12-26] MEDS: Simethicone 80 MG Tab.Chew PO SCH ×2 (07:49→11:35)
[2016-12-26] MEDS: Memantine 10 MG Tab PO SCH (08:01)
[2016-12-26] MEDS: Aspirin 325 MG Tab.EC PO SCH (08:01)
[2016-12-26] MEDS: Metoprolol Succinate 50 MG Tab.ER PO SCH (08:02)
[2016-12-26] MEDS: IPRATROPIUM INH SCH ×4 (09:17→21:28)
[2016-12-26] MEDS: ALBUTEROL SULFATE INH SCH ×4 (09:17→21:28)
--- NOTE | 2016-12-26 09:59 | CT ---
Head CT Technique: Multiple axial sections through the brain were obtained. Intravenous contrast was not utilized. Comparison: Previous head CT study of 12/24/16. Findings: Ventricles along with basal cisterns and sulci over the convexities are moderately prominent. Diffuse diminished density is noted within the periventricular and subcortical white matter which is compatible with small vessel ischemic demyelination change. Focal atrophy is again noted within the posterior left parietal region felt compatible with old infarct. No other abnormal parenchymal densities are seen. No evidence of intracranial hemorrhage. No midline shift or mass effect is seen. Bone window settings were reviewed which show slight mucosal thickening within the inferior mastoid sinus which is stable. Minimal areas of mucosal thickening with the left maxillary and ethmoid sinuses are seen after felt to be incidental. No acute calvarial abnormality is seen. Impression: 1. Senescent change as described above. 2. Sinus findings which are felt to be incidental. 3. Nothing acute is appreciated on noncontrast head CT study. No appreciable change is seen from prior head CT exam. Diagnostic code #2
[2016-12-26] MEDS ORDERED: Simethicone 80 MG Tab.Chew PO PRN (11:35)
[2016-12-26] MEDS ORDERED: Pantoprazole 40 MG Tab.CR PO SCH (16:00)
[2016-12-27] MEDS ORDERED: Enoxaparin 30 MG/0.3 ML Syringe SUBCUT SCH (07:02)
--- NOTE | 2016-12-27 07:34 | PCM.DCSUM1 ---
Discharge Summary - Hospital Course Free Text/Narrative:: 81 year old female has been admitted for CVA/TIA. Developed AMS on the day of admission. She devloped right sided weakness. She is a DNR/DNI. Additional information from the SNF report includes elevated temp 100.4F. - Discharge Data Discharge Date: 12/27/16 (admit date12/24/16) Discharge Disposition: DC/Tfer to Board [facility] 63 Condition: Good - Discharge Diagnosis/Problem(s) (1) TIA (transient ischemic attack) SNOMED Code(s): 906485336, 763728987 ICD Code: G45.9 - TRANSIENT CEREBRAL ISCHEMIC ATTACK, UNSPECIFIED Status: Acute Priority: High Current Visit: Yes Qualifiers: Transient cerebral ischemia type: unspecified Qualified Code(s): G45.9 - Transient cerebral ischemic attack, unspecified (2) Febrile SNOMED Code(s): 164144151 ICD Code: R50.9 - FEVER, UNSPECIFIED Status: Resolved Priority: High Current Visit: Yes Qualifiers: Fever type: unspecified Qualified Code(s): R50.9 - Fever, unspecified (3) Dementia SNOMED Code(s): 86940700 ICD Code: F03.90 - UNSPECIFIED DEMENTIA WITHOUT BEHAVIORAL DISTURBANCE Status: Chronic Priority: Medium Current Visit: Yes - Patient Summary/Data Operative Procedure(s) Performed: None Complications: None Consults: Consultations 12/24/16 17:04 Consult to Casing Grader [CONS] Routine 12/25/16 09:00 Consult to Speech Language Pathology [UX DESIGN MANAGER Evaluation and Treatment] [CONS] Routine 12/25/16 10:00 Consult to Occupational Therapy [OT Evaluation and Treatment] [CONS] Routine Consult to Physical Therapy [PT Evaluation and Treatment] [CONS] Routine Labs Pending at D/C: None Recommended Follow-up Testing/Procedures: Follow up with PCP within 1-2 weeks of discharge Planned Operative Procedure(s) after DC: None Hospital Course: As above - Patient Instructions Diet: Heart Healthy Diet Activity: As Tolerated Driving: Do Not Drive Showering/Bathing: May Shower Notify Provider of: Fever, Increased Pain, Nausea and/or Vomiting - Discharge Plan Prescriptions/Med Rec: RX: Aspirin [Ecotrin] 325 mg PO DAILY #30 tab.ec Home Medications: Home Meds RX: Acetaminophen 325 mg PO Q6H PRN 12/24/16 [History] RX: Bisacodyl [Dulcolax] 10 mg RECTAL DAILY PRN 12/24/16 [History] RX: Docusate Sodium/Sennosides [Senna Plus] 1 tab PO BID 12/24/16 [History] RX: Ipratropium/Albuterol Sulfate [Combivent Respimat Inhal [place]] 1 puff IH QID 12/24/16 [History] RX: Memantine HCl [Namenda] 5 mg PO BEDTIME 12/24/16 [History] RX: Metoprolol Succinate 50 mg PO DAILY 12/24/16 [History] RX: Omeprazole 20 mg PO DAILY 12/24/16 [History] RX: Simethicone 80 mg PO TIDMEALS 12/24/16 [History] RX: Aspirin [Ecotrin] 325 mg PO DAILY #30 tab.ec 12/27/16 [Rx] Patient Handouts: Thickening Liquids for Dysphagia Diet, Transient Ischemic Attack, Qoic-[id number], Ischemic Stroke Treated Without Warfarin, [id number], Dysphagia Diet Level 2, Mechanically Altered Forms: ED Department Discharge Referrals: Victor Manuel Leiva MD [Primary Care Provider] - - Discharge Summary/Plan Comment DC Time >30 min.: Yes (40 min) - General Info Date of Service: 12/27/16 Admission Dx/Problem (Free Text: TIA Functional Status: Reports: pain controlled, tolerating diet, urinating ( incontinent) - Review of Systems General: Reports: Weakness (generalized). Denies: Fever HEENT: Reports: no symptoms Pulmonary: Reports: no symptoms Cardiovascular: Reports: No Symptoms Gastrointestinal: Reports: No symptoms Neurological: Reports: Confusion Psychiatric: Reports: confusion Systems Review Comment: Unable to obtain from patient due to dementia - Patient Data Vitals - Most Recent: Last Vital Signs Temp 98.2 F 12/27/16 04:07 Pulse 97 12/27/16 04:07 Resp 16 12/27/16 04:07 BP 113/64 12/27/16 04:07 Pulse Ox 90 L 12/27/16 04:07 Weight - Most Recent: 115 lb 11.2 oz I&O - Last 24 hours: Intake & Output 12/26/16 12/27/16 12/27/16 22:59 06:59 14:59 Intake Total 120 120 Balance 120 120 Lab Results - Last 24 hrs: Laboratory Results - last 24 hr 12/26/16 12/26/16 12/27/16 Range/Units 05:55 05:55 04:41 WBC 5.27 5.79 (3.98-10.04) K/mm3 RBC 5.05 5.17 (3.98-5.22) M/mm3 Hgb 14.9 15.0 (11.2-15.7) gm/L Hct 45.1 H 45.5 H (34.1-44.9) % MCV 89.3 88.0 (79.4-94.8) fl MCH 29.5 29.0 (25.6-32.2) pg MCHC 33.0 33.0 (32.2-35.5) g/dl RDW Std Deviation 42.5 41.9 (36.4-46.3) fL Plt Count 204 190 (182-369) K/mm3 MPV 9.6 9.3 L (9.4-12.3) fl Neut % (Auto) 65.2 70.8 (34.0-71.1) % Lymph % (Auto) 15.6 L 13.5 L (19.3-51.7) % [place] % (Auto) 17.3 H 15.0 H (4.7-12.5) % Eos % (Auto) 1.1 0.2 L (0.7-5.8) Baso % (Auto) 0.6 0.3 (0.1-1.2) % Neut # (Auto) 3.44 4.10 (1.56-6.13) K/mm3 Lymph # (Auto) 0.82 L 0.78 L (1.18-3.74) K/mm3 [place] # (Auto) 0.91 H 0.87 H (0.24-0.36) K/mm3 Eos # (Auto) 0.06 0.01 L (0.04-0.36) K/mm3 Baso # (Auto) 0.03 0.02 (0.01-0.08) K/mm3 Manual Slide Review Normal smear Sodium (136-145) mEq/L Potassium (3.5-5.1) mEq/L Chloride (98-107) mEq/L Carbon Dioxide (21-32) mEq/L Anion Gap (5-15) BUN (7-18) mg/dL Creatinine (0.55-1.02) mg/dL Est Cr Clr Drug Dosing mL/min Estimated GFR (MDRD) (>60) mL/min BUN/Creatinine Ratio (14-18) Glucose (83-115) mg/dL Calcium (8.5-10.1) mg/dL Magnesium 2.0 (1.8-2.4) mg/dl 12/27/16 Range/Units 04:41 WBC (3.98-10.04) K/mm3 RBC (3.98-5.22) M/mm3 Hgb (11.2-15.7) gm/L Hct (34.1-44.9) % MCV (79.4-94.8) fl MCH (25.6-32.2) pg MCHC (32.2-35.5) g/dl RDW Std Deviation (36.4-46.3) fL Plt Count (182-369) K/mm3 MPV (9.4-12.3) fl Neut % (Auto) (34.0-71.1) % Lymph % (Auto) (19.3-51.7) % [place] % (Auto) (4.7-12.5) % Eos % (Auto) (0.7-5.8) Baso % (Auto) (0.1-1.2) % Neut # (Auto) (1.56-6.13) K/mm3 Lymph # (Auto) (1.18-3.74) K/mm3 [place] # (Auto) (0.24-0.36) K/mm3 Eos # (Auto) (0.04-0.36) K/mm3 Baso # (Auto) (0.01-0.08) K/mm3 Manual Slide Review Sodium 136 (136-145) mEq/L Potassium 4.1 (3.5-5.1) mEq/L Chloride 103 (98-107) mEq/L Carbon Dioxide 23 (21-32) mEq/L Anion Gap 14.1 (5-15) BUN 31 H (7-18) mg/dL Creatinine 1.2 H (0.55-1.02) mg/dL Est Cr Clr Drug Dosing 28.59 mL/min Estimated GFR (MDRD) 43 (>60) mL/min BUN/Creatinine Ratio 25.8 H (14-18) Glucose 105 (83-115) mg/dL Calcium 8.7 (8.5-10.1) mg/dL Magnesium (1.8-2.4) mg/dl Med Orders - Current: Current Medications Aspirin (Ecotrin) 325 mg PO DAILY [facility] Last Admin: 12/26/16 08:01 Dose: 325 mg Bisacodyl (Dulcolax) 10 mg PO DAILY PRN PRN Reason: Constipation Enoxaparin Sodium (Lovenox) 30 mg SUBCUT DAILY [facility] Memantine (Namenda) 5 mg PO DAILY [facility] Last Admin: 12/26/16 08:01 Dose: 5 mg Metoprolol Succinate (Toprol Xl) 25 mg PO DAILY [facility] Last Admin: 12/26/16 08:02 Dose: Not Given Pantoprazole Sodium (Protonix) 40 mg PO DAILY@1600 [facility] Last Admin: 12/26/16 16:23 Dose: 40 mg Comovent Respimat ( Ipratropium/Albuterol Sulfate) Inhaler 0 each INH QID [facility] Last Admin: 12/26/16 21:28 Dose: Not Given Senna/Docusate Sodium (Senna Plus) 1 tab PO BID [facility] Last Admin: 12/26/16 21:26 Dose: 1 tab Simethicone (Simethicone) 80 mg PO ASDIRECTED PRN PRN Reason: Gas Sodium Chloride (Saline Flush) 10 ml FLUSH ASDIRECTED PRN PRN Reason: Keep Vein Open Last Admin: 12/24/16 14:02 Dose: 10 ml Discontinued Medications Diphtheria/Tetanus/Acell Pertussis (Boostrix) 0.5 ml IM .ONCE ONE Stop: 12/25/16 09:01 Enoxaparin Sodium (Lovenox) 30 mg SUBCUT DAILY [facility] Last Admin: 12/25/16 10:16 Dose: 30 mg Enoxaparin Sodium (Lovenox) 40 mg SUBCUT DAILY [facility] Last Admin: 12/26/16 08:01 Dose: 40 mg Sodium Chloride (Normal Saline) 1,000 mls @ 100 mls/hr IV ONETIME ONE Stop: 12/24/16 23:22 Last Admin: 12/24/16 14:01 Dose: 100 mls/hr Simethicone (Simethicone) 80 mg PO TIDMEALS [facility] Last Admin: 12/26/16 11:35 Dose: Not Given - Exam Quality Assessment: Reports: DVT prophylaxis General: Reports: alert, no acute distress HEENT: Reports: Pupils equal, Pupils reactive, EOMI, Mucous membr. moist/pink Neck: Reports: supple Lungs: Reports: Clear to auscultation, Normal respiratory effort, Decreased breath sounds (throughout) Cardiovascular: Reports: Regular Rate, Regular Rhythm, Murmurs Abdomen: Reports: bowel sounds present, soft, no tenderness (Female) Exam: Deferred Rectal (Female) Exam: Deferred Neurological: Denies: normal speech (nonverbal) Psy/Mental Status: Reports: other (dementia) *Q Meaningful Use (DIS) - VTE *Q VTE Criteria *Q: - Stroke *Q Stroke Criteria *Q: - AMI *Q AMI Criteria *Q:
[2016-12-27] MEDS ORDERED: Diphtheria,Pertussis(Acell),Tetanus Vaccine 0.5 ML SDV inactive IM ONE (08:04)
[2016-12-27 08:21] VITALS: BP 107/64
[2016-12-27] MEDS: Memantine 10 MG Tab PO SCH (08:21)
[2016-12-27] MEDS: Aspirin 325 MG Tab.EC PO SCH (08:21)
[2016-12-27] MEDS: Metoprolol Succinate 50 MG Tab.ER PO SCH (08:22)
[2016-12-27] MEDS: ALBUTEROL SULFATE INH SCH (09:56)
[2016-12-27] MEDS: IPRATROPIUM INH SCH (09:56)
--- NOTE | 2016-12-27 11:52 | PCM.DCSUM1 ---
<Sydney Shah M - Last Filed: 12/27/16 11:47> Discharge Summary - Hospital Course Free Text/Narrative:: 81-year-old female presents via the [facility] ambulance service from [facility] for a possible stroke. The patient's does not respond to questioning. History is obtained from EMS staff and snf staff. Per ER providers documentation: I spoke with [facility] RN Marissa. She was taking care of the patient today. States that this morning she got up for breakfast between 7 and 8 and ate breakfast okay. She normally pivot transfers and does this without difficulty. They did not appreciate any motor deficits this morning. She states that she took her morning medications. They did feel that she was more congested than normal. They then laid her down for nap. Around 11:30 the HARPOON ENGAGEMENT PLANNING OPERATOR alerted Marissa to her decrease in motor function. She was sitting on the bed but they felt that they observed right-sided weakness. They also noticed a droop to her face. She would not follow commands and could not squeeze the nurse's fingers. Her speech was garbled. She was crying. States that her baseline is normally alert 2 and she is able to state her name. They felt that her weakness was a significant decline from her normal status. They then contacted Dr. Orlando who instructed them to bring and to the ER. No vomiting or diarrhea. Nursing staff reports that she normally has some incontinence but reports that around 11:30 she had a large amount of urinary incontinence which is abnormal for her. Vitals at the snf included a temp of 100.4, blood pressure 120/69, heart rate is 78, respirations of 16 and 90% 2% on room air. Patient takes an 81 mg aspirin daily. Patient has a history of Alzheimer's and dementia. She is a DNR/DNI. CT head done in ED was unremarkable, CXR negative. Labs on admission with normal WBC, hgb, electrolytes. Creatinine 1.3. Lactic acid 2.1. Patient will be admitted to Hospitalist service for TIA evaluation. Echocardiogram was obtained with normal EF of 60%, no valvular concerns. Carotid US with 1-49% plaque, rt >lt, no significant findings. Cholesterol is excellent. Follow up labs remained stable. Repeat head CT in 48 hours also negative. Telemetry was unremarkable, without arrhythmias. ASA dose was increased from 81mg to 325mg daily. Reviewed results, POC and DC expectations with POA. She wishes for patient to be made comfort cares at this time. She will be discharged back to [place] today; code status changed per POA to Comfort Cares; POA wishes no therapies to be done. She will follow up with PCP, Dr. Leiva within 1-2 weeks of discharge. - Discharge Data Discharge Date: 12/27/16 (admit date 12/24/16) Discharge Disposition: DC/Tfer to [facility] 62 Condition: Good - Discharge Diagnosis/Problem(s) (1) TIA (transient ischemic attack) SNOMED Code(s): 019894400, 251968641 ICD Code: G45.9 - TRANSIENT CEREBRAL ISCHEMIC ATTACK, UNSPECIFIED Status: Acute Priority: High Qualifiers: Transient cerebral ischemia type: unspecified Qualified Code(s): G45.9 - Transient cerebral ischemic attack, unspecified (2) Febrile SNOMED Code(s): 444060516 ICD Code: R50.9 - FEVER, UNSPECIFIED Status: Resolved Priority: High Qualifiers: Fever type: unspecified Qualified Code(s): R50.9 - Fever, unspecified (3) Dementia SNOMED Code(s): 22230504 ICD Code: F03.90 - UNSPECIFIED DEMENTIA WITHOUT BEHAVIORAL DISTURBANCE Status: Chronic Priority: Medium - Patient Summary/Data Operative Procedure(s) Performed: None Complications: None Consults: Consultations 12/24/16 17:04 Consult to Police Shift Commander [CONS] Routine 12/25/16 09:00 Consult to Speech Language Pathology [BUYERS' AGENT Evaluation and Treatment] [CONS] Routine 12/25/16 10:00 Consult to Occupational Therapy [OT Evaluation and Treatment] [CONS] Routine Consult to Physical Therapy [PT Evaluation and Treatment] [CONS] Routine Labs Pending at D/C: None Recommended Follow-up Testing/Procedures: Follow up with PCP, Dr. Leiva within 1-2 weeks of discharge. Planned Operative Procedure(s) after DC: None Hospital Course: As above - Patient Instructions Diet: Heart Healthy Diet Activity: As Tolerated Driving: Do Not Drive Showering/Bathing: May Shower Notify Provider of: Fever, Increased Pain, Nausea and/or Vomiting - Discharge Plan Prescriptions/Med Rec: Aspirin [Ecotrin] 325 mg PO DAILY #30 tab.ec Home Medications: Home Meds Acetaminophen 325 mg PO Q6H PRN 12/24/16 [History] Bisacodyl [Dulcolax] 10 mg RECTAL DAILY PRN 12/24/16 [History] Docusate Sodium/Sennosides [Senna Plus] 1 tab PO BID 12/24/16 [History] Ipratropium/Albuterol Sulfate [Combivent Respimat Inhal [place]] 1 puff IH QID [History] Memantine HCl [Namenda] 5 mg PO BEDTIME 12/24/16 [History] Metoprolol Succinate 50 mg PO DAILY 12/24/16 [History] Omeprazole 20 mg PO DAILY 12/24/16 [History] Simethicone 80 mg PO TIDMEALS 12/24/16 [History] Aspirin [Ecotrin] 325 mg PO DAILY #30 tab.ec 12/27/16 [Rx] Patient Handouts: Thickening Liquids for Dysphagia Diet, Transient Ischemic Attack, [id number], Ischemic Stroke Treated Without Warfarin, [id number], Dysphagia Diet Level 2, Mechanically Altered Forms: ED Department Discharge Referrals: Victor Manuel Leiva MD [Primary Care Provider] - - Discharge Summary/Plan Comment DC Time >30 min.: Yes (40 min) - General Info Date of Service: 12/27/16 Admission Dx/Problem (Free Text: TIA Patient awake and alert today, responds appropriately to yes or no questions. Denies c/o pain/discomfort. POA voices no concerns; other than wishes to make patient Comfort Cares from this point. Functional Status: Reports: pain controlled, tolerating diet, urinating - Review of Systems General: Reports: Weakness HEENT: Reports: no symptoms Pulmonary: Reports: no symptoms. Denies: shortness of breath, cough Cardiovascular: Reports: No Symptoms. Denies: Chest Pain Gastrointestinal: Reports: No symptoms. Denies: Abdominal pain Neurological: Reports: Weakness - Patient Data Vitals - Most Recent: Last Vital Signs Temp 98.6 F 12/27/16 08:18 Pulse 103 H 12/27/16 08:22 Resp 22 H 12/27/16 08:18 BP 107/64 12/27/16 08:22 Pulse Ox 91 L 12/27/16 08:19 Weight - Most Recent: 52.481 kg I&O - Last 24 hours: Intake & Output 12/26/16 12/27/16 12/27/16 22:59 06:59 14:59 Intake Total 120 120 120 Balance 120 120 120 Lab Results - Last 24 hrs: Laboratory Results - last 24 hr 12/27/16 12/27/16 Range/Units 04:41 04:41 WBC 5.79 (3.98-10.04) K/mm3 RBC 5.17 (3.98-5.22) M/mm3 Hgb 15.0 (11.2-15.7) gm/L Hct 45.5 H (34.1-44.9) % MCV 88.0 (79.4-94.8) fl MCH 29.0 (25.6-32.2) pg MCHC 33.0 (32.2-35.5) g/dl RDW Std Deviation 41.9 (36.4-46.3) fL Plt Count 190 (182-369) K/mm3 MPV 9.3 L (9.4-12.3) fl Neut % (Auto) 70.8 (34.0-71.1) % Lymph % (Auto) 13.5 L (19.3-51.7) % [place] % (Auto) 15.0 H (4.7-12.5) % Eos % (Auto) 0.2 L (0.7-5.8) Baso % (Auto) 0.3 (0.1-1.2) % Neut # (Auto) 4.10 (1.56-6.13) K/mm3 Lymph # (Auto) 0.78 L (1.18-3.74) K/mm3 [place] # (Auto) 0.87 H (0.24-0.36) K/mm3 Eos # (Auto) 0.01 L (0.04-0.36) K/mm3 Baso # (Auto) 0.02 (0.01-0.08) K/mm3 Sodium 136 (136-145) mEq/L Potassium 4.1 (3.5-5.1) mEq/L Chloride 103 (98-107) mEq/L Carbon Dioxide 23 (21-32) mEq/L Anion Gap 14.1 (5-15) BUN 31 H (7-18) mg/dL Creatinine 1.2 H (0.55-1.02) mg/dL Est Cr Clr Drug Dosing 28.59 mL/min Estimated GFR (MDRD) 43 (>60) mL/min BUN/Creatinine Ratio 25.8 H (14-18) Glucose 105 (83-115) mg/dL Calcium 8.7 (8.5-10.1) mg/dL Med Orders - Current: Current Medications Aspirin (Ecotrin) 325 mg PO DAILY [facility] Last Admin: 12/27/16 08:21 Dose: 325 mg Bisacodyl (Dulcolax) 10 mg PO DAILY PRN PRN Reason: Constipation Enoxaparin Sodium (Lovenox) 30 mg SUBCUT DAILY [facility] Last Admin: 12/27/16 08:20 Dose: 30 mg Memantine (Namenda) 5 mg PO DAILY [facility] Last Admin: 12/27/16 08:21 Dose: 5 mg Metoprolol Succinate (Toprol Xl) 25 mg PO DAILY [facility] Last Admin: 12/27/16 08:22 Dose: 25 mg Pantoprazole Sodium (Protonix) 40 mg PO DAILY@1600 [facility] Last Admin: 12/26/16 16:23 Dose: 40 mg Comovent Respimat ( Ipratropium/Albuterol Sulfate) Inhaler 0 each INH QID [facility] Last Admin: 12/27/16 09:56 Dose: Not Given Senna/Docusate Sodium (Senna Plus) 1 tab PO BID [facility] Last Admin: 12/27/16 08:21 Dose: 1 tab Simethicone (Simethicone) 80 mg PO ASDIRECTED PRN PRN Reason: Gas Sodium Chloride (Saline Flush) 10 ml FLUSH ASDIRECTED PRN PRN Reason: Keep Vein Open Last Admin: 12/24/16 14:02 Dose: 10 ml Discontinued Medications Diphtheria/Tetanus/Acell Pertussis (Boostrix) 0.5 ml IM .ONCE ONE Stop: 12/25/16 09:01 Diphtheria/Tetanus/Acell Pertussis (Boostrix) 0.5 ml IM .ONCE ONE Stop: 12/27/16 08:05 Last Admin: 12/27/16 08:19 Dose: 0.5 ml Enoxaparin Sodium (Lovenox) 30 mg SUBCUT DAILY [facility] Last Admin: 06/21/17 10:16 Dose: 30 mg Enoxaparin Sodium (Lovenox) 40 mg SUBCUT DAILY [facility] Last Admin: 12/26/16 08:01 Dose: 40 mg Sodium Chloride (Normal Saline) 1,000 mls @ 100 mls/hr IV ONETIME ONE Stop: 12/24/16 23:22 Last Admin: 12/24/16 14:01 Dose: 100 mls/hr Simethicone (Simethicone) 80 mg PO TIDMEALS [facility] Last Admin: 12/26/16 11:35 Dose: Not Given - Exam Quality Assessment: Reports: DVT prophylaxis General: Reports: alert, cooperative, no acute distress HEENT: Reports: Pupils equal, Pupils reactive, EOMI, Mucous membr. moist/pink Neck: Reports: supple Lungs: Reports: Clear to auscultation, Normal respiratory effort, Decreased breath sounds (bases bilat) Cardiovascular: Reports: Regular Rate, Regular Rhythm, Murmurs (grade 1-2 systolic) Abdomen: Reports: bowel sounds present, soft, no tenderness (Female) Exam: Deferred Rectal (Female) Exam: Deferred Extremities: Reports: no edema Psy/Mental Status: Reports: alert, normal mood, other (flat affect; masked faces ) *Q Meaningful Use (DIS) - VTE *Q VTE Criteria *Q: - Stroke *Q Stroke Criteria *Q: - AMI *Q AMI Criteria *Q: <Billie Johns - Last Filed: 12/27/16 14:30> Discharge Summary - Hospital Course Free Text/Narrative:: DC to SNF; DNR/DNI with Comfort Care. - Discharge Diagnosis/Problem(s) (1) Dementia SNOMED Code(s): 76641173 ICD Code: F03.90 - UNSPECIFIED DEMENTIA WITHOUT BEHAVIORAL DISTURBANCE Status: Chronic Priority: Medium (2) Febrile SNOMED Code(s): 948839759 ICD Code: R50.9 - FEVER, UNSPECIFIED Status: Resolved Priority: High Qualifiers: Fever type: unspecified Qualified Code(s): R50.9 - Fever, unspecified (3) TIA (transient ischemic attack) SNOMED Code(s): 457546066, 725377246 ICD Code: G45.9 - TRANSIENT CEREBRAL ISCHEMIC ATTACK, UNSPECIFIED Status: Acute Priority: High Qualifiers: Transient cerebral ischemia type: unspecified Qualified Code(s): G45.9 - Transient cerebral ischemic attack, unspecified - Patient Summary/Data Consults: Consultations 12/24/16 17:04 Consult to Police Shift Commander [CONS] Routine 12/25/16 09:00 Consult to Speech Language Pathology [BUYERS' AGENT Evaluation and Treatment] [CONS] Routine 12/25/16 10:00 Consult to Occupational Therapy [OT Evaluation and Treatment] [CONS] Routine Consult to Physical Therapy [PT Evaluation and Treatment] [CONS] Routine - Patient Data Vitals - Most Recent: Last Vital Signs Temp 37.0 C 12/27/16 08:18 Pulse 103 H 12/27/16 08:22 Resp 22 H 12/27/16 08:18 BP 107/64 12/27/16 08:22 Pulse Ox 91 L 12/27/16 08:19 I&O - Last 24 hours: Intake & Output 12/26/16 12/27/16 12/27/16 22:59 06:59 14:59 Intake Total 120 120 120 Balance 120 120 120 Lab Results - Last 24 hrs: Laboratory Results - last 24 hr 12/27/16 12/27/16 Range/Units 04:41 04:41 WBC 5.79 (3.98-10.04) K/mm3 RBC 5.17 (3.98-5.22) M/mm3 Hgb 15.0 (11.2-15.7) gm/L Hct 45.5 H (34.1-44.9) % MCV 88.0 (79.4-94.8) fl MCH 29.0 (25.6-32.2) pg MCHC 33.0 (32.2-35.5) g/dl RDW Std Deviation 41.9 (36.4-46.3) fL Plt Count 190 (182-369) K/mm3 MPV 9.3 L (9.4-12.3) fl Neut % (Auto) 70.8 (34.0-71.1) % Lymph % (Auto) 13.5 L (19.3-51.7) % [place] % (Auto) 15.0 H (4.7-12.5) % Eos % (Auto) 0.2 L (0.7-5.8) Baso % (Auto) 0.3 (0.1-1.2) % Neut # (Auto) 4.10 (1.56-6.13) K/mm3 Lymph # (Auto) 0.78 L (1.18-3.74) K/mm3 [place] # (Auto) 0.87 H (0.24-0.36) K/mm3 Eos # (Auto) 0.01 L (0.04-0.36) K/mm3 Baso # (Auto) 0.02 (0.01-0.08) K/mm3 Sodium 136 (136-145) mEq/L Potassium 4.1 (3.5-5.1) mEq/L Chloride 103 (98-107) mEq/L Carbon Dioxide 23 (21-32) mEq/L Anion Gap 14.1 (5-15) BUN 31 H (7-18) mg/dL Creatinine 1.2 H (0.55-1.02) mg/dL Est Cr Clr Drug Dosing 28.59 mL/min Estimated GFR (MDRD) 43 (>60) mL/min BUN/Creatinine Ratio 25.8 H (14-18) Glucose 105 (83-115) mg/dL Calcium 8.7 (8.5-10.1) mg/dL Med Orders - Current: Current Medications Aspirin (Ecotrin) 325 mg PO DAILY [facility] Last Admin: 12/27/16 08:21 Dose: 325 mg Bisacodyl (Dulcolax) 10 mg PO DAILY PRN PRN Reason: Constipation Enoxaparin Sodium (Lovenox) 30 mg SUBCUT DAILY [facility] Last Admin: 12/27/16 08:20 Dose: 30 mg Memantine (Namenda) 5 mg PO DAILY [facility] Last Admin: 12/27/16 08:21 Dose: 5 mg Metoprolol Succinate (Toprol Xl) 25 mg PO DAILY [facility] Last Admin: 12/27/16 08:22 Dose: 25 mg Pantoprazole Sodium (Protonix) 40 mg PO DAILY@1600 [facility] Last Admin: 12/26/16 16:23 Dose: 40 mg Comovent Respimat ( Ipratropium/Albuterol Sulfate) Inhaler 0 each INH QID [facility] Last Admin: 12/27/16 09:56 Dose: Not Given Senna/Docusate Sodium (Senna Plus) 1 tab PO BID [facility] Last Admin: 12/27/16 08:21 Dose: 1 tab Simethicone (Simethicone) 80 mg PO ASDIRECTED PRN PRN Reason: Gas Sodium Chloride (Saline Flush) 10 ml FLUSH ASDIRECTED PRN PRN Reason: Keep Vein Open Last Admin: 12/24/16 14:02 Dose: 10 ml Discontinued Medications Diphtheria/Tetanus/Acell Pertussis (Boostrix) 0.5 ml IM .ONCE ONE Stop: 12/25/16 09:01 Diphtheria/Tetanus/Acell Pertussis (Boostrix) 0.5 ml IM .ONCE ONE Stop: 12/27/16 08:05 Last Admin: 12/27/16 08:19 Dose: 0.5 ml Enoxaparin Sodium (Lovenox) 30 mg SUBCUT DAILY [facility] Last Admin: 12/25/16 10:16 Dose: 30 mg Enoxaparin Sodium (Lovenox) 40 mg SUBCUT DAILY [facility] Last Admin: 12/26/16 08:01 Dose: 40 mg Sodium Chloride (Normal Saline) 1,000 mls @ 100 mls/hr IV ONETIME ONE Stop: 12/24/16 23:22 Last Admin: 12/24/16 14:01 Dose: 100 mls/hr Simethicone (Simethicone) 80 mg PO TIDMEALS [facility] Last Admin: 12/26/16 11:35 Dose: Not Given *Q Meaningful Use (DIS) - VTE *Q VTE Criteria *Q: - Stroke *Q Stroke Criteria *Q: - AMI *Q AMI Criteria *Q:
== END 2016-12-27 10:00 | DRG 69 ==
LOC: JD.ED 12:50 → JD.MS 14:40 → UNDOADMIN 14:40 → JD.MS 16:45
PROVIDERS: ADMIT Internal Medicine Cardiovascular Disease; ATTEND Internal Medicine Cardiovascular Disease
DX: G45.9 Transient cerebral ischemic attack, unspecified (principal); R50.9 Fever, unspecified; R13.10 Dysphagia, unspecified; I10 Essential (primary) hypertension; R32 Unspecified urinary incontinence; Z66 Do not resuscitate; M19.90 Unspecified osteoarthritis, unspecified site; R26.9 Unspecified abnormalities of gait and mobility; G30.9 Alzheimer's disease, unspecified; F02.80 Dementia in other diseases classified elsewhere, unspecified severity, without behavioral disturbance, psychotic disturbance, mood disturbance, and anxiety; F41.9 Anxiety disorder, unspecified; F20.9 Schizophrenia, unspecified; Z79.82 Long term (current) use of aspirin; Z79.899 Other long term (current) drug therapy; Z87.891 Personal history of nicotine dependence; Z51.5 Encounter for palliative care; Z23 Encounter for immunization
CPT/HCPCS: 36415; 70450; 71010; 80053; 81001; 82962; 83605; 83880; 84484; 85025; 85610; 85730; 86140; 87040 ×2; 87086; 93005; 96360; 96361; 99285; J7040; J7050; 80048; 80061; 83735; 90471; 90715; 92526-GN; 92610-GN; 93306; 93880; 93880-26; 97163-GP; 97167-GO; 99284; A9270-GY; J1650

== ENCOUNTER 2017-12-23 10:16 | Inpatient (IN) | payer MEDICARE ==
[2017-12-23] MEDS ORDERED: Acetaminophen 650 MG Supp RECTAL ONE (10:48)
[2017-12-23] MEDS ORDERED: cefTRIAXone 2 GM in Sodium Chloride 0.9% 100 ML IV ONE (10:49)
--- NOTE | 2017-12-23 10:50 | EDM.PDOC ---
ED HPI GENERAL MEDICAL PROBLEM - General Chief Complaint: Respiratory Problem Stated Complaint: [facility] Time Seen by Provider: 12/23/17 10:45 Source of Information: Reports: Patient History Limitations: Reports: No Limitations - History of Present Illness INITIAL COMMENTS - FREE TEXT/NARRATIVE: 82-year-old female presents to the ED per ambulance [facility] local [facility] . Apparently she developed illness over the last 48 hours with decreased appetite yesterday. Acute febrile illness developed overnight with high hypoxia. Sats dropped to around 84% on room air. Patient is also known to have dementia but is now become more nonverbal. She makes eye contact and seems to understand but she does not speak. Barely she has not ate or drank much at all for the last 48 hours. She has a history of congestive heart failure and COPD. She was acutely febrile this morning and apparently received 650 mg of Tylenol at about 6 0630 hrs. this morning. Current temperature rectally is 100. She feels much warmer than this. No cough has been indicated. No history of aspiration pneumonia pneumonia in the past O2 sats on room air 84%. They are 93% on 3 L. Initial BP was 105/65. Clinically the patient is exhibiting signs symptoms of sepsis. Onset: Gradual, Other (decreased appetite and perhaps low-grade fever.) Onset Date: 12/22/17 Duration: Hour(s): Location: Reports: Generalized (Acute onset of high fever and altered level of consciousness) Quality: Reports: Other (She is unable to express any verbal complaints.) Severity: Moderate Improves with: Reports: None (The initial report indicates that her fever did not come down with the initial dose of Tylenol. However initial report was that his her temperature was 103 this morning.) Context: Reports: Other (residential patient.). Denies: Activity, Exercise, Lifting, Sick Contact, Trauma Associated Symptoms: Reports: Confusion (Become nonverbal. She does have a history of dementia.), Malaise, Other (Has not ate or drank much at all for 2 days.). Denies: Chest Pain, Cough Treatments MANAGER TECHNICAL SUPPORT: Reports: Acetaminophen (Has received 650 mg earlier this morning about 6:30. ), Oxygen (Was started on O2 by paramedics.) - Related Data Allergies Allergy/AdvReac Type Severity Reaction Status Date / Time No Known Allergies Allergy Verified 12/23/17 10:27 Home Meds: Home Meds Acetaminophen 650 mg PO Q6H PRN 12/24/16 [History] Bisacodyl [Dulcolax] 10 mg RECTAL DAILY PRN 12/24/16 [History] Docusate Sodium/Sennosides [Senna Plus] 8.6 - 50 mg PO BID 12/24/16 [History] Ipratropium/Albuterol Sulfate [Combivent Respimat 20-100 Mcg] 1 puff IH QID [History] Memantine HCl [Namenda] 5 mg PO BEDTIME 12/24/16 [History] Metoprolol Succinate 50 mg PO DAILY 12/24/16 [History] Omeprazole 20 mg PO DAILY 12/24/16 [History] Simethicone 80 mg PO TIDMEALS 12/24/16 [History] Amino Ac/Protein Hydr/Whey Pro [Prosource Protein] 1 oz PO TIDMEALS 12/23/17 [ History] Aspirin [Ecotrin] 81 mg PO DAILY 12/23/17 [History] Bisacodyl [Dulcolax] 10 mg PO DAILY PRN 12/23/17 [History] Dextran 70/Hypromellose [Artificial Tears] 1 drop EYEBOTH QID 12/23/17 [History] Nut Tx, Lact-Reduced, Iron [Boost VHC] 3 oz PO 5XDAY 12/23/17 [History] Nut.Tx.Impaired Digest Fxn [Ensure Clear] 4 oz PO TIDMEALS 12/23/17 [History] Past Medical History HEENT History: Reports: Other (See Below) Other HEENT History: dysphagia, Disorders of eye and adnexa- Cardiovascular History: Reports: Hypertension Other Cardiovascular History: Disorder of circulatory system-ecchmosis Respiratory History: Reports: COPD Gastrointestinal History: Reports: None Genitourinary History: Reports: Urinary Incontinence Musculoskeletal History: Reports: Other (See Below) Other Musculoskeletal History: abnormalities of gait and mobility; contractures to hand; generalized muscle weakness Neurological History: Reports: Alzheimers Disease, TIA, Other (See Below) Other Neuro History: tremors; cerebral infarction without residual deficits Psychiatric History: Reports: Addiction, Alzheimers Disease, Anxiety, Dementia , Psychosis, Schizophrenia, Other (See Below) Other Psychiatric History: Nicotine dependence; unspecified mental disorder due to physiological condition Hematologic History: Reports: Other (See Below) Other Hematologic History: take a baby aspirin Dermatologic History: Reports: Other (See Below) Other Dermatologic History: chronic ecchymosis - Infectious Disease History Infectious Disease History: Reports: MRSA Other Infectious Disease History: MRSA- wound (buttocks) Social & Family History - Family History Family Medical History: Noncontributory - Tobacco Use Smoking Status *Q: Former Smoker Used Tobacco, but Quit: Yes Month/Year Tobacco Last Used: Unknown - Caffeine Use Caffeine Use: Reports: Coffee - Recreational Drug Use Recreational Drug Use: No - Living Situation & Occupation Living situation: Reports: , Extended Care Facility Occupation: Retired ED ROS GENERAL - Review of Systems Review Of Systems: Unable To Obtain (Patient has become nonverbal with onset of high fever.) Constitutional: Reports: Fever ED EXAM, GENERAL - Physical Exam Exam: See Below Exam Limited By: Altered Mental Status (Patient is nonverbal. She does have underlying dementia. Appears to been exacerbated by acute illness.) General Appearance: Lethargic, Moderate Distress (Respiratory distress with hypoxia of 84% on room air. Respiratory rate is 30/m.), Other (Very warm to palpation.) Eye Exam: Bilateral Eye: Normal Inspection (No jaundice) Ears: Normal TMs Throat/Mouth: Other Head: Atraumatic (Tongue is dry and coated. No obvious or for oropharyngeal infection.), Normocephalic Neck: Normal Inspection, Supple, Limited Range of Motion, Other (No JVD). No: Carotid Bruit, Lymphadenopathy (L), Lymphadenopathy (R) Respiratory/Chest: No Accessory Muscle Use, Respiratory Distress (Tachypnea at rest 30/m with O2 sats of 84% on room air.), Decreased Breath Sounds (Air entry to the lower lung barker is severely diminished due to shallow respirations.Appreciated right base.), Rales (Right base). No: Rhonchi, Wheezing Cardiovascular: Regular Rate, Rhythm, No Edema, No Gallop, No Murmur, No Rub. No: Normal Peripheral Pulses Peripheral Pulses: 0: Posterior Tibial (L), Posterior Tibial (R), Dorsalis Pedis (L), Dorsalis Pedis (R) GI/Abdominal: Normal Bowel Sounds, Soft, Non-Tender, No Organomegaly, Distended (Lower abdomen appears to distended. It is tympanitic to percussion however. Bladder scan will be performed). No: Guarding, Rebound, Tender Back Exam: Other (Mild kyphosis thoracic spine.) Extremities: Non-Tender, Limited Range of Motion, Other (No obvious active arthritis of her knees or hips identified. There is limited range of motion externally internal rotation of both hips.) Neurological: Other (Nonverbal. She makes eye contact and tries to obey commands but even this is difficult. Patient would not open her mouth for examination of her tongue. Appears to have trouble comprehending speech at this time). No: Alert, Oriented, CN II-XII Intact, Normal Cognition Skin Exam: Warm, Dry, Intact, Normal Color, No Rash EKG INTERPRETATION EKG Date: 12/23/17 Time: 11:10 Rhythm: NSR Rate (Beats/Min): 90 [place]: Normal P-Wave: Present QRS: Other (There is early R-wave transition. Consider right ventricular hypertrophy versus septal hypertrophy pattern. There is left ventricle hypertrophy pattern.) ST-T: Depressed (There is minimal ST segment depression in leads II, III, and F aVF. T-wave flattening in 1 and aVL. T-wave inversion V2 to V6 compatible with possible ischemia.) QT: Normal EKG Interpretation Comments: Abnormal ECG Course - Vital Signs Last Recorded V/S: Last Vital Signs Temp 36.2 C 12/23/17 12:46 Pulse Resp 30 H 12/23/17 10:19 BP 111/54 L 12/23/17 10:19 Pulse Ox 89 L 12/23/17 10:19 - Orders/Labs/Meds Orders: Active Orders 24 hr Category Date Time Status EKG Documentation Completion [RC] STAT Care 12/23/17 10:46 Active Insert Bal Catheter [Insert Urinary Catheter] [OM.PC] Care 12/23/17 11:45 Ordered Stat Oxygen Therapy [RC] ASDIRECTED Care 12/23/17 10:46 Active Urinary Catheter Assessment [RC] ASDIRECTED Care 12/23/17 11:45 Active Chest 1V Frontal [CR] Stat Exams 12/23/17 10:45 Taken CULTURE BLOOD [BC] Stat Lab 12/23/17 11:02 Received CULTURE BLOOD [BC] Stat Lab 12/23/17 11:08 Received CULTURE URINE [RM] Stat Lab 12/23/17 11:50 Received URINALYSIS W/MICROSCOPIC [UA W/MICROSCOPIC] [URIN] Stat Lab 12/23/17 11:50 Ordered Potassium Chloride [KCl 10 MEQ in Water 100 ML] 10 meq Med 12/23/17 12:15 Active Premix Bag 1 bag IV ASDIRECTED Sodium Chloride 0.9% [Normal Saline] 1,000 ml Med 12/23/17 11:00 Active IV ASDIRECTED Vancomycin 0.75 gm Med 12/23/17 12:45 Active Sodium Chloride 0.9% [Normal Saline] 250 ml IV ONETIME Blood Culture x2 Reflex Set [OM.PC] Stat Oth 12/23/17 10:47 Ordered Medication Orders Sodium Chloride (Normal Saline) 1,000 mls @ 500 mls/hr IV ASDIRECTED LATOSHA Last Admin: 12/23/17 12:41 Dose: 500 mls/hr Potassium Chloride 10 meq/ (Premix) 100 mls @ 100 mls/hr IV ASDIRECTED LATOSHA Last Admin: 12/23/17 12:41 Dose: 100 mls/hr Vancomycin HCl 0.75 gm/ Sodium (Chloride) 250 mls @ 250 mls/hr IV ONETIME ONE Stop: 12/23/17 13:44 Labs: Laboratory Tests 12/23/17 12/23/17 12/23/17 Range/Units 11:02 11:02 11:02 WBC 14.36 H (3.98-10.04) K/mm3 RBC 4.86 (3.98-5.22) M/mm3 Hgb 14.1 (11.2-15.7) gm/L Hct 45.7 H (34.1-44.9) % MCV 94.0 (79.4-94.8) fl MCH 29.0 (25.6-32.2) pg MCHC 30.9 L (32.2-35.5) g/dl RDW Std Deviation 44.9 (36.4-46.3) fL Plt Count 236 (182-369) K/mm3 MPV 11.0 (9.4-12.3) fl Neutrophils % (Manual) 70 H (40-60) % Band Neutrophils % 21 H (0-10) % Lymphocytes % (Manual) 8 L (20-40) % Atypical Lymphs % 0 % Monocytes % (Manual) 1 L (2-10) % Eosinophils % (Manual) 0 L (0.7-5.8) % Basophils % (Manual) 0 L (0.1-1.2) Toxic Granulation 1+ slight Platelet Estimate Adequate RBC Morph Comment Normal PT 12.1 (9.5-12.1) SECONDS INR 1.11 Puncture Site ABG pH (7.35-7.45) ABG pCO2 (35.0-45.0) mmHg ABG pO2 (80.0-100.0) mmHg ABG HCO3 (22.0-26.0) meq/L ABG O2 Saturation (96.0-97.0) % ABG Base Excess (-2-2.0) Garett Test A-a Gradient mmHg O2 Delivery Device Oxygen Flow Rate FiO2 (21.00-100.00) % Sodium 156 H (136-145) mEq/L Potassium 3.0 L (3.5-5.1) mEq/L Chloride 121 H (98-107) mEq/L Carbon Dioxide 23 (21-32) mEq/L Anion Gap 15.0 (5-15) BUN 48 H (7-18) mg/dL Creatinine 1.6 H (0.55-1.02) mg/dL Est Cr Clr Drug Dosing TNP Estimated GFR (MDRD) 31 (>60) mL/min BUN/Creatinine Ratio 30.0 H (14-18) Glucose 176 H (83-115) mg/dL Lactic Acid (0.4-2.0) mmol/L Calcium 8.1 L (8.5-10.1) mg/dL Magnesium 2.5 H (1.8-2.4) mg/dl Total Bilirubin 0.8 (0.2-1.0) mg/dL AST 17 (15-37) U/L ALT 17 (14-59) U/L Alkaline Phosphatase 93 (46-116) U/L Troponin I < 0.017 (0.00-0.056) ng/mL C-Reactive Protein 22.7 H* (<1.0) mg/dL NT-Pro-B Natriuret Pep (0-450) pg/mL Total Protein 5.7 L (6.4-8.2) g/dl Albumin 2.2 L (3.4-5.0) g/dl Globulin 3.5 gm/dL Albumin/Globulin Ratio 0.6 L (1-2) Urine Color (Yellow) Urine Appearance (Clear) Urine pH (5.0-8.0) Ur Specific West (1.005-1.030) Urine Protein (Negative) Urine Glucose (UA) (Negative) Urine Ketones (Negative) Urine Occult Blood (Negative) Urine Nitrite (Negative) Urine Bilirubin (Negative) Urine Urobilinogen (0.2-1.0) Ur Leukocyte Esterase (Negative) Urine RBC (0-5) /hpf Urine WBC (0-5) /hpf Ur Epithelial Cells (0-5) /hpf Urine Bacteria (FEW) /hpf Urine Mucus (FEW) /hpf 12/23/17 12/23/17 12/23/17 Range/Units 11:02 11:02 11:50 WBC (3.98-10.04) K/mm3 RBC (3.98-5.22) M/mm3 Hgb (11.2-15.7) gm/L Hct (34.1-44.9) % MCV (79.4-94.8) fl MCH (25.6-32.2) pg MCHC (32.2-35.5) g/dl RDW Std Deviation (36.4-46.3) fL Plt Count (182-369) K/mm3 MPV (9.4-12.3) fl Neutrophils % (Manual) (40-60) % Band Neutrophils % (0-10) % Lymphocytes % (Manual) (20-40) % Atypical Lymphs % % Monocytes % (Manual) (2-10) % Eosinophils % (Manual) (0.7-5.8) % Basophils % (Manual) (0.1-1.2) Toxic Granulation Platelet Estimate RBC Morph Comment PT (9.5-12.1) SECONDS INR Puncture Site ABG pH (7.35-7.45) ABG pCO2 (35.0-45.0) mmHg ABG pO2 (80.0-100.0) mmHg ABG HCO3 (22.0-26.0) meq/L ABG O2 Saturation (96.0-97.0) % ABG Base Excess (-2-2.0) Garett Test A-a Gradient mmHg O2 Delivery Device Oxygen Flow Rate FiO2 (21.00-100.00) % Sodium (136-145) mEq/L Potassium (3.5-5.1) mEq/L Chloride (98-107) mEq/L Carbon Dioxide (21-32) mEq/L Anion Gap (5-15) BUN (7-18) mg/dL Creatinine (0.55-1.02) mg/dL Est Cr Clr Drug Dosing Estimated GFR (MDRD) (>60) mL/min BUN/Creatinine Ratio (14-18) Glucose (83-115) mg/dL Lactic Acid 2.1 H (0.4-2.0) mmol/L Calcium (8.5-10.1) mg/dL Magnesium (1.8-2.4) mg/dl Total Bilirubin (0.2-1.0) mg/dL AST (15-37) U/L ALT (14-59) U/L Alkaline Phosphatase (46-116) U/L Troponin I (0.00-0.056) ng/mL C-Reactive Protein (<1.0) mg/dL NT-Pro-B Natriuret Pep 1577 H (0-450) pg/mL Total Protein (6.4-8.2) g/dl Albumin (3.4-5.0) g/dl Globulin gm/dL Albumin/Globulin Ratio (1-2) Urine Color Yellow (Yellow) Urine Appearance Slt cloudy H (Clear) Urine pH 6.0 (5.0-8.0) Ur Specific West > or = 1.030 (1.005-1.030) Urine Protein 2+ H (Negative) Urine Glucose (UA) Negative (Negative) Urine Ketones Negative (Negative) Urine Occult Blood Negative (Negative) Urine Nitrite Negative (Negative) Urine Bilirubin 1+ H (Negative) Urine Urobilinogen 0.2 (0.2-1.0) Ur Leukocyte Esterase Negative (Negative) Urine RBC Not seen (0-5) /hpf Urine WBC 5-10 H (0-5) /hpf Ur Epithelial Cells 0-5 (0-5) /hpf Urine Bacteria Many H (FEW) /hpf Urine Mucus Few (FEW) /hpf 12/23/17 Range/Units 12:30 WBC (3.98-10.04) K/mm3 RBC (3.98-5.22) M/mm3 Hgb (11.2-15.7) gm/L Hct (34.1-44.9) % MCV (79.4-94.8) fl MCH (25.6-32.2) pg MCHC (32.2-35.5) g/dl RDW Std Deviation (36.4-46.3) fL Plt Count (182-369) K/mm3 MPV (9.4-12.3) fl Neutrophils % (Manual) (40-60) % Band Neutrophils % (0-10) % Lymphocytes % (Manual) (20-40) % Atypical Lymphs % % Monocytes % (Manual) (2-10) % Eosinophils % (Manual) (0.7-5.8) % Basophils % (Manual) (0.1-1.2) Toxic Granulation Platelet Estimate RBC Morph Comment PT (9.5-12.1) SECONDS INR Puncture Site Lt radial ABG pH 7.45 (7.35-7.45) ABG pCO2 36.7 (35.0-45.0) mmHg ABG pO2 65.0 L (80.0-100.0) mmHg ABG HCO3 25.2 (22.0-26.0) meq/L ABG O2 Saturation 93.1 L (96.0-97.0) % ABG Base Excess 1.9 (-2-2.0) Garett Test Positive A-a Gradient 119 mmHg O2 Delivery Device Nasal cannula Oxygen Flow Rate 4.0 FiO2 36.00 (21.00-100.00) % Sodium (136-145) mEq/L Potassium (3.5-5.1) mEq/L Chloride (98-107) mEq/L Carbon Dioxide (21-32) mEq/L Anion Gap (5-15) BUN (7-18) mg/dL Creatinine (0.55-1.02) mg/dL Est Cr Clr Drug Dosing Estimated GFR (MDRD) (>60) mL/min BUN/Creatinine Ratio (14-18) Glucose (83-115) mg/dL Lactic Acid (0.4-2.0) mmol/L Calcium (8.5-10.1) mg/dL Magnesium (1.8-2.4) mg/dl Total Bilirubin (0.2-1.0) mg/dL AST (15-37) U/L ALT (14-59) U/L Alkaline Phosphatase (46-116) U/L Troponin I (0.00-0.056) ng/mL C-Reactive Protein (<1.0) mg/dL NT-Pro-B Natriuret Pep (0-450) pg/mL Total Protein (6.4-8.2) g/dl Albumin (3.4-5.0) g/dl Globulin gm/dL Albumin/Globulin Ratio (1-2) Urine Color (Yellow) Urine Appearance (Clear) Urine pH (5.0-8.0) Ur Specific West (1.005-1.030) Urine Protein (Negative) Urine Glucose (UA) (Negative) Urine Ketones (Negative) Urine Occult Blood (Negative) Urine Nitrite (Negative) Urine Bilirubin (Negative) Urine Urobilinogen (0.2-1.0) Ur Leukocyte Esterase (Negative) Urine RBC (0-5) /hpf Urine WBC (0-5) /hpf Ur Epithelial Cells (0-5) /hpf Urine Bacteria (FEW) /hpf Urine Mucus (FEW) /hpf Meds: Medications Generic Name Dose Route Start Last Admin Trade Name Freq PRN Reason Stop Dose Admin Sodium Chloride 1,000 mls @ 500 mls/hr 12/23/17 11:00 12/23/17 12:41 Normal Saline IV 500 mls/hr ASDIRECTED LATOSHA Administration Potassium Chloride 10 meq/ 100 mls @ 100 mls/hr 12/23/17 12:15 12/23/17 12:41 Premix IV 100 mls/hr ASDIRECTED LATOSHA Administration Vancomycin HCl 0.75 gm/ Sodium 250 mls @ 250 mls/hr 12/23/17 12:45 Chloride IV 12/23/17 13:44 ONETIME ONE Discontinued Medications Generic Name Dose Route Start Last Admin Trade Name Earnestq PRN Reason Stop Dose Admin Acetaminophen 650 mg 12/23/17 10:48 12/23/17 12:46 Tylenol RECTAL 12/23/17 10:49 650 mg NOW ONE Administration Ceftriaxone Sodium 2 gm/ 100 mls @ 100 mls/hr 12/23/17 10:49 12/23/17 12:41 Sodium Chloride IV 12/23/17 11:48 100 mls/hr ONETIME ONE Administration Vancomycin HCl 0.75 gm/ Sodium 250 mls @ 250 mls/hr 12/23/17 12:29 Chloride IV 12/23/17 13:28 ONETIME ONE Vancomycin HCl 0.75 gm/ Sodium 250 mls @ 250 mls/hr 12/23/17 12:45 Chloride IV 12/23/17 13:44 ONETIME ONE - Radiology Interpretation Free Text/Narrative:: 82-year-old female presents the ED from local [facility] with acute onset of high fever. Is also caused her to become nonverbal. Apparently she is normally somewhat verbally confused speech because of underlying dementia. He is hypoxic on room air at 84%. There's been no history of cough or sputum production provided. Patient is placed on oxygen at 3 L/m to maintain O2 sats of 93%. Clinically she is volume depleted. She is borderline hypotensive with the initial systolic blood pressure of 105/66. She is clinically afebrile time of examination. She will receive Tylenol suppository 650 mg. She requires complete septic workup. Abnormal ECG with T-wave inversion V2 to V6 and minimal ST segment depression in II, III, and F aVF suspicious for ischemia. Few crackles appreciated right lung base. History of COPD and congestive failure. Abdomen suggests possible urinary retention with distention of the urinary bladder. Plan bladder scan and then you're to give a be obtained by catheterization. Bladder scan is positive then she will require Bal catheterization. Apparently she has not had a problem for 3 days. Will give Rocephin 2 g IV as soon as blood cultures 2 been collected. One view chest x-ray to be obtained as well. - Re-Assessments/Exams Free Text/Narrative Re-Assessment/Exam: 12/23/17 11:39 portal chest x-ray reveals hyperinflated lung barker. There is a infiltrate in the right perihilar area. Patient is rotated quite badly to the left making the right hilum more prominent than normal. It does appear to be a diffuse vascular congestion pattern. No effusion or pneumothorax. 12/23/17 12:02 bladder scan revealed only 75 mils within the bladder. Urine obtained was foul-smelling and very dark in color. Urine sent for analysis and culture. 12/23/17 12:06 Labs are back. Total white count is elevated at 14.36 with 70% neutrophils and 21% bands reported. PT is 12.1 with a INR slightly elevated at 1.11. I.e. she appears to be mildly auto anticoagulated. Serum sodium is markedly elevated at 156. Potassium is low at 3.0. Chloride is elevated at 121. Bicarbonate is 23. And a gap is 15.0. BUN is elevated at 48 with a creatinine of 1.6.e GFR is 31-stage III chronic kidney disease.. Glucose elevated at 176. Lactic acid is mildly elevated at 2.1. Calcium is 8.1 slightly low. Magnesium is slightly elevated at 2.5. Liver function is normal. CRP is pending. BNP is elevated at 1577. Total protein is slightly low at 5.7. Albumin fraction low at 2.2. Will continue IV normal saline to complete a liter of IV fluid and then switch her to half normal saline. She will be given potassium intravenously 10 mEq over the next hour. 12/23/17 12:20 . Urinalysis shows 2+ proteinuria. 1+ bilirubin. Leukocyte Estrace test is negative on dip. However there are 5-10 WBCs per high-power field on the micro-and many bacteria reported. Urine culture ordered. Patient will require admission to the hospital. Prognosis is extremely guarded. Usually with severe hypernatremia mortality is 100% within 30 days. Will discuss case with Dr. Johns group leader semiconductor testing hospitalist. Fluid management is an issue. She is in mild congestive failure. Blood pressure is currently 103/57. Current sats are 91 % on 3 L/m. ABGs did not initially get done and are going to be done at this time. We'll also add vancomycin 750 mg IV to current treatment plan. CODE STATUS is being verified. Apparently she is a do not race a state in terms of no CPR and no intubation. Accepting of medications. This might be some water in terms of whether or not vasopressors are indicated or not. 12/23/17 12:59 blood gases revealed a pH of 7.45. PCO2 is 36.9. PaO2 65. Sats are 93% on 4 L. CRP returned at 22.7. At this time she will stay on 4 L/m. Dr. Johns is seen the patient in the ED and has agreed to admission to the [facility] surgery floor on telemetry. Departure - Departure Time of Disposition: 12:59 Disposition: Admitted As Inpatient 65 Condition: Critical Clinical Impression: Acute hypernatremia, Chronic renal insufficiency, stage III (moderate), Hypokalemia due to inadequate potassium intake, Urinary tract infection after immobility Sepsis Qualifiers: Sepsis type: sepsis due to unspecified organism Qualified Code(s): A41.9 - Sepsis, unspecified organism Congestive heart failure Qualifiers: Heart failure type: diastolic Heart failure chronicity: chronic Qualified Code( s): I50.32 - Chronic diastolic (congestive) heart failure - Discharge Information Referrals: Victor Manuel Leiva MD [Primary Care Provider] - Forms: ED Department Discharge - My Orders Last 24 Hours: My Active Orders 12/23/17 10:45 Chest 1V Frontal [CR] Stat 12/23/17 10:46 EKG Documentation Completion [RC] STAT Oxygen Therapy [RC] ASDIRECTED 12/23/17 10:47 Blood Culture x2 Reflex Set [OM.PC] Stat 12/23/17 11:00 Sodium Chloride 0.9% [Normal Saline] 1,000 ml IV ASDIRECTED 12/23/17 11:02 CULTURE BLOOD [BC] Stat 12/23/17 11:08 CULTURE BLOOD [BC] Stat 12/23/17 11:45 Insert Bal Catheter [Insert Urinary Catheter] [OM.PC] Stat Urinary Catheter Assessment [RC] ASDIRECTED 12/23/17 11:50 CULTURE URINE [RM] Stat URINALYSIS W/MICROSCOPIC [UA W/MICROSCOPIC] [URIN] Stat 12/23/17 12:15 Potassium Chloride [KCl 10 MEQ in Water 100 ML] 10 meq Premix Bag 1 bag IV ASDIRECTED 12/23/17 12:45 Vancomycin 0.75 gm Sodium Chloride 0.9% [Normal Saline] 250 ml IV ONETIME - Assessment/Plan Last 24 Hours: My Active Orders 12/23/17 10:45 Chest 1V Frontal [CR] Stat 12/23/17 10:46 EKG Documentation Completion [RC] STAT Oxygen Therapy [RC] ASDIRECTED 12/23/17 10:47 Blood Culture x2 Reflex Set [OM.PC] Stat 12/23/17 11:00 Sodium Chloride 0.9% [Normal Saline] 1,000 ml IV ASDIRECTED 12/23/17 11:02 CULTURE BLOOD [BC] Stat 12/23/17 11:08 CULTURE BLOOD [BC] Stat 12/23/17 11:45 Insert Bal Catheter [Insert Urinary Catheter] [OM.PC] Stat Urinary Catheter Assessment [RC] ASDIRECTED 12/23/17 11:50 CULTURE URINE [RM] Stat URINALYSIS W/MICROSCOPIC [UA W/MICROSCOPIC] [URIN] Stat 12/23/17 12:15 Potassium Chloride [KCl 10 MEQ in Water 100 ML] 10 meq Premix Bag 1 bag IV ASDIRECTED 12/23/17 12:45 Vancomycin 0.75 gm Sodium Chloride 0.9% [Normal Saline] 250 ml IV ONETIME
[2017-12-23] MEDS ORDERED: Sodium Chloride 0.9% 1,000 ML IV SCH (11:00)
[2017-12-23] MEDS ORDERED: Potassium Chloride 10 MEQ in Premix Bag 1 BAG IV SCH (12:15)
--- NOTE | 2017-12-23 13:53 | PCM.HP ---
H&P History of Present Illness - General Date of Service: 12/23/17 Admit Problem/Dx: Admission Diagnosis/Problem Admission Diagnosis/Problem Sepsis due to urinary tract infection Source of Information: Old Records, Provider, RN, RN Notes Reviewed History Limitations: Reports: Altered Mental Status - History of Present Illness Initial Comments - Free Text/Narative: Elana Howard is an 82 yo female who presents to our ED today (12/23/17) via ambulance from a local [facility]. Staff reports she developed an illness with the last 48 hours and was complaining of decreased appetite yesterday. Overnight she developed a fever and hypoxia. Saturations were found to be around 84% on room air. She has known dementia but is now nonverbal. She wakes I contacted his understanding she does not speak staff reports she has not ate or drank much in the last 48 hours. She does have a history ofcongestive heart failure and COPD. She received Tylenolthis morning around 6: 30 AM. Rectal temperature in ED was 100although she feels much warmer than this. No cough or history of aspiration pneumonia. In the ED oxygen saturatios were 84% on room air. She was placed on 3 L via cannula and may increase to 93%. Blood pressure is 105/65. Respirations were 30. Heart rate was 90. 12-lead EKG was obtained which show sinus rhythm at 90 bpm. There is early R-wave transition noticed. Consider right ventricular versus septal hypertrophy pattern. There is left ventricular hypertrophy pattern. There is minimal ST segment depression in leads II, III, and aVF. T- wave flattening is noted in I and aVL. T-wave inversion in V2 to V6 compatible with possible ischemia. QT is normal. Labs are obtained: WBCs are elevated at 14.36. Hemoglobin 14.1. Hematocrit 45.7. She is normocytic. Platelets are good at 236,000. Neutrophils are elevated at 70%. 21% band neutrophils are noted. PT is 12.1. INR 1.1. Sodium is 156 which is very high. Potassium is low at 3.0. Chloride is high at 121. Carbon dioxide 23. Anion gap 15. BUN is high at 48. Creatinine 1.6. EGFR 31. Glucose is high at 176. Calcium is low at 8.1. Magnesium is high at 2.5. AST 17 ALT is 17, alkaline phosphatase is 93. Troponin is less than 0.017. CRP is elevated at 22.7. Protein is low at 5.7. Albumin is 2.2. Lactic acid is slightly elevated at 2.1. BNP is elevated at 1577. UA is obtained which shows concentrated urine, 2+ urine protein, 1+ urine bilirubin, 5-10 WBCs, and many urine bacteria. ABGs obtained the left radial with a pH of 7.45. PCO2 is 36.7. PO2 is 65. Bicarbonate is 25.2. O2 saturation is 93.1. Base excess is 1.1. This is obtained on 4 L. FiO2 is 36. She started on normal saline, potassium, and vancomycin. Tylenol Rocephin are also given. Bladder scan was obtained and shows urine retention. Bal catheter was placed. Portable chest x-ray is obtained and shows hyperinflated lung barker infiltrate is noted in the right perihilar area. She is quite rotated during this radiograph. UA when obtaining was noted to be foul -smelling and dark in color. Urine cultures ordered. she carries a history of: ysphagia, hypertension,COPD, urinary incontinence, abnormal gait, Alzheimer's disease, TIA, tremors, cerebral infarction, anxiety, dementia, psychosis, schizophrenia. History of positive MRSA wound to her Buttocks. She is a former smoker. She is subsequently admitted to the medical floor on telemetry. CODE STATUS is DNR/DNI. PCP is Dr. Leiva. - Related Data Allergies/Adverse Reactions: Allergies Allergy/AdvReac Type Severity Reaction Status Date / Time No Known Allergies Allergy Verified 12/23/17 10:27 Home Medications: Home Meds Acetaminophen 650 mg PO Q6H PRN 12/24/16 [History] Bisacodyl [Dulcolax] 10 mg RECTAL DAILY PRN 12/24/16 [History] Docusate Sodium/Sennosides [Senna Plus] 8.6 - 50 mg PO BID 12/24/16 [History] Ipratropium/Albuterol Sulfate [Combivent Respimat 20-100 Mcg] 1 puff IH QID [History] Memantine HCl [Namenda] 5 mg PO BEDTIME 12/24/16 [History] Metoprolol Succinate 50 mg PO DAILY 12/24/16 [History] Omeprazole 20 mg PO DAILY 12/24/16 [History] Simethicone 80 mg PO TIDMEALS 12/24/16 [History] Amino Ac/Protein Hydr/Whey Pro [Prosource Protein] 1 oz PO TIDMEALS 12/23/17 [ History] Aspirin [Ecotrin] 81 mg PO DAILY 12/23/17 [History] Bisacodyl [Dulcolax] 10 mg PO DAILY PRN 12/23/17 [History] Dextran 70/Hypromellose [Artificial Tears] 1 drop EYEBOTH QID 12/23/17 [History] Nut Tx, Lact-Reduced, Iron [Boost VHC] 3 oz PO 5XDAY 12/23/17 [History] Nut.Tx.Impaired Digest Fxn [Ensure Clear] 4 oz PO TIDMEALS 12/23/17 [History] Past Medical History HEENT History: Reports: Other (See Below) Other HEENT History: dysphagia, Disorders of eye and adnexa- Cardiovascular History: Reports: Hypertension Other Cardiovascular History: Disorder of circulatory system-ecchmosis Respiratory History: Reports: COPD Gastrointestinal History: Reports: None Genitourinary History: Reports: Urinary Incontinence Musculoskeletal History: Reports: Other (See Below) Other Musculoskeletal History: abnormalities of gait and mobility; contractures to hand; generalized muscle weakness Neurological History: Reports: Alzheimers Disease, TIA, Other (See Below) Other Neuro History: tremors; cerebral infarction without residual deficits Psychiatric History: Reports: Addiction, Alzheimers Disease, Anxiety, Dementia , Psychosis, Schizophrenia, Other (See Below) Other Psychiatric History: Nicotine dependence; unspecified mental disorder due to physiological condition Hematologic History: Reports: Other (See Below) Other Hematologic History: take a baby aspirin Dermatologic History: Reports: Other (See Below) Other Dermatologic History: chronic ecchymosis - Infectious Disease History Infectious Disease History: Reports: MRSA Other Infectious Disease History: MRSA- wound (buttocks) Social & Family History - Family History Family Medical History: Noncontributory - Tobacco Use Smoking Status *Q: Former Smoker Used Tobacco, but Quit: Yes Month/Year Tobacco Last Used: Unknown - Caffeine Use Caffeine Use: Reports: Coffee - Recreational Drug Use Recreational Drug Use: No - Living Situation & Occupation Living situation: Reports: , Extended Care Facility Occupation: Retired H&P Review of Systems - Review of Systems: Review Of Systems: Unable To Obtain (Patient is non-verbal at this point) Exam - Exam Exam: See Below - Vital Signs Vital Signs: Last Vital Signs Temp 97.2 F 12/23/17 12:46 Pulse Resp 30 H 12/23/17 10:19 BP 111/54 L 12/23/17 10:19 Pulse Ox 89 L 12/23/17 10:19 Weight: 105 lb - Exam Quality Assessment: Supplemental Oxygen, Urinary Catheter, DVT Prophylaxis General: Moderate Distress, Lethargic HEENT: Conjunctiva Clear, Pupils Equal, Pupils Reactive. No: Mucosa Moist & [place] (dry) Neck: Supple, Trachea Midline. No: JVD Lungs: Decreased Breath Sounds, Rales. No: Normal Respiratory Effort ( tachypnic ) Cardiovascular: Regular Rate, Regular Rhythm GI/Abdominal Exam: Normal Bowel Sounds, Soft, Non-Tender, No Distention (Female) Exam: Deferred Rectal (Female) Exam: Deferred Extremities: Normal Inspection, Non-Tender Peripheral Pulses: 2+: Radial (L), Radial (R), Posterior Tibial (L), Posterior Tibial (R), Dorsalis Pedis (L), Dorsalis Pedis (R) Skin: Warm, Dry, Intact Neuro Extensive - Mental Status: Opens Eyes to Commands Psychiatric: Alert (to verbal stimuli) - Patient Data Lab Results Last 24 hrs: Laboratory Results - last 24 hr 12/23/17 12/23/17 12/23/17 Range/Units 11:02 11:02 11:02 WBC 14.36 H (3.98-10.04) K/mm3 RBC 4.86 (3.98-5.22) M/mm3 Hgb 14.1 (11.2-15.7) gm/L Hct 45.7 H (34.1-44.9) % MCV 94.0 (79.4-94.8) fl MCH 29.0 (25.6-32.2) pg MCHC 30.9 L (32.2-35.5) g/dl RDW Std Deviation 44.9 (36.4-46.3) fL Plt Count 236 (182-369) K/mm3 MPV 11.0 (9.4-12.3) fl Neutrophils % (Manual) 70 H (40-60) % Band Neutrophils % 21 H (0-10) % Lymphocytes % (Manual) 8 L (20-40) % Atypical Lymphs % 0 % Monocytes % (Manual) 1 L (2-10) % Eosinophils % (Manual) 0 L (0.7-5.8) % Basophils % (Manual) 0 L (0.1-1.2) Toxic Granulation 1+ slight Platelet Estimate Adequate RBC Morph Comment Normal PT 12.1 (9.5-12.1) SECONDS INR 1.11 Puncture Site ABG pH (7.35-7.45) ABG pCO2 (35.0-45.0) mmHg ABG pO2 (80.0-100.0) mmHg ABG HCO3 (22.0-26.0) meq/L ABG O2 Saturation (96.0-97.0) % ABG Base Excess (-2-2.0) Garett Test A-a Gradient mmHg O2 Delivery Device Oxygen Flow Rate FiO2 (21.00-100.00) % Sodium 156 H (136-145) mEq/L Potassium 3.0 L (3.5-5.1) mEq/L Chloride 121 H (98-107) mEq/L Carbon Dioxide 23 (21-32) mEq/L Anion Gap 15.0 (5-15) BUN 48 H (7-18) mg/dL Creatinine 1.6 H (0.55-1.02) mg/dL Est Cr Clr Drug Dosing TNP Estimated GFR (MDRD) 31 (>60) mL/min BUN/Creatinine Ratio 30.0 H (14-18) Glucose 176 H (83-115) mg/dL Lactic Acid (0.4-2.0) mmol/L Calcium 8.1 L (8.5-10.1) mg/dL Magnesium 2.5 H (1.8-2.4) mg/dl Total Bilirubin 0.8 (0.2-1.0) mg/dL AST 17 (15-37) U/L ALT 17 (14-59) U/L Alkaline Phosphatase 93 (46-116) U/L Troponin I < 0.017 (0.00-0.056) ng/mL C-Reactive Protein 22.7 H* (<1.0) mg/dL NT-Pro-B Natriuret Pep (0-450) pg/mL Total Protein 5.7 L (6.4-8.2) g/dl Albumin 2.2 L (3.4-5.0) g/dl Globulin 3.5 gm/dL Albumin/Globulin Ratio 0.6 L (1-2) Urine Color (Yellow) Urine Appearance (Clear) Urine pH (5.0-8.0) Ur Specific [place] (1.005-1.030) Urine Protein (Negative) Urine Glucose (UA) (Negative) Urine Ketones (Negative) Urine Occult Blood (Negative) Urine Nitrite (Negative) Urine Bilirubin (Negative) Urine Urobilinogen (0.2-1.0) Ur Leukocyte Esterase (Negative) Urine RBC (0-5) /hpf Urine WBC (0-5) /hpf Ur Epithelial Cells (0-5) /hpf Urine Bacteria (FEW) /hpf Urine Mucus (FEW) /hpf 12/23/17 12/23/17 12/23/17 Range/Units 11:02 11:02 11:50 WBC (3.98-10.04) K/mm3 RBC (3.98-5.22) M/mm3 Hgb (11.2-15.7) gm/L Hct (34.1-44.9) % MCV (79.4-94.8) fl MCH (25.6-32.2) pg MCHC (32.2-35.5) g/dl RDW Std Deviation (36.4-46.3) fL Plt Count (182-369) K/mm3 MPV (9.4-12.3) fl Neutrophils % (Manual) (40-60) % Band Neutrophils % (0-10) % Lymphocytes % (Manual) (20-40) % Atypical Lymphs % % Monocytes % (Manual) (2-10) % Eosinophils % (Manual) (0.7-5.8) % Basophils % (Manual) (0.1-1.2) Toxic Granulation Platelet Estimate RBC Morph Comment PT (9.5-12.1) SECONDS INR Puncture Site ABG pH (7.35-7.45) ABG pCO2 (35.0-45.0) mmHg ABG pO2 (80.0-100.0) mmHg ABG HCO3 (22.0-26.0) meq/L ABG O2 Saturation (96.0-97.0) % ABG Base Excess (-2-2.0) Garett Test A-a Gradient mmHg O2 Delivery Device Oxygen Flow Rate FiO2 (21.00-100.00) % Sodium (136-145) mEq/L Potassium (3.5-5.1) mEq/L Chloride (98-107) mEq/L Carbon Dioxide (21-32) mEq/L Anion Gap (5-15) BUN (7-18) mg/dL Creatinine (0.55-1.02) mg/dL Est Cr Clr Drug Dosing Estimated GFR (MDRD) (>60) mL/min BUN/Creatinine Ratio (14-18) Glucose (83-115) mg/dL Lactic Acid 2.1 H (0.4-2.0) mmol/L Calcium (8.5-10.1) mg/dL Magnesium (1.8-2.4) mg/dl Total Bilirubin (0.2-1.0) mg/dL AST (15-37) U/L ALT (14-59) U/L Alkaline Phosphatase (46-116) U/L Troponin I (0.00-0.056) ng/mL C-Reactive Protein (<1.0) mg/dL NT-Pro-B Natriuret Pep 1577 H (0-450) pg/mL Total Protein (6.4-8.2) g/dl Albumin (3.4-5.0) g/dl Globulin gm/dL Albumin/Globulin Ratio (1-2) Urine Color Yellow (Yellow) Urine Appearance Slt cloudy H (Clear) Urine pH 6.0 (5.0-8.0) Ur Specific [place] > or = 1.030 (1.005-1.030) Urine Protein 2+ H (Negative) Urine Glucose (UA) Negative (Negative) Urine Ketones Negative (Negative) Urine Occult Blood Negative (Negative) Urine Nitrite Negative (Negative) Urine Bilirubin 1+ H (Negative) Urine Urobilinogen 0.2 (0.2-1.0) Ur Leukocyte Esterase Negative (Negative) Urine RBC Not seen (0-5) /hpf Urine WBC 5-10 H (0-5) /hpf Ur Epithelial Cells 0-5 (0-5) /hpf Urine Bacteria Many H (FEW) /hpf Urine Mucus Few (FEW) /hpf 12/23/17 Range/Units 12:30 WBC (3.98-10.04) K/mm3 RBC (3.98-5.22) M/mm3 Hgb (11.2-15.7) gm/L Hct (34.1-44.9) % MCV (79.4-94.8) fl MCH (25.6-32.2) pg MCHC (32.2-35.5) g/dl RDW Std Deviation (36.4-46.3) fL Plt Count (182-369) K/mm3 MPV (9.4-12.3) fl Neutrophils % (Manual) (40-60) % Band Neutrophils % (0-10) % Lymphocytes % (Manual) (20-40) % Atypical Lymphs % % Monocytes % (Manual) (2-10) % Eosinophils % (Manual) (0.7-5.8) % Basophils % (Manual) (0.1-1.2) Toxic Granulation Platelet Estimate RBC Morph Comment PT (9.5-12.1) SECONDS INR Puncture Site Lt radial ABG pH 7.45 (7.35-7.45) ABG pCO2 36.7 (35.0-45.0) mmHg ABG pO2 65.0 L (80.0-100.0) mmHg ABG HCO3 25.2 (22.0-26.0) meq/L ABG O2 Saturation 93.1 L (96.0-97.0) % ABG Base Excess 1.9 (-2-2.0) Garett Test Positive A-a Gradient 119 mmHg O2 Delivery Device Nasal cannula Oxygen Flow Rate 4.0 FiO2 36.00 (21.00-100.00) % Sodium (136-145) mEq/L Potassium (3.5-5.1) mEq/L Chloride (98-107) mEq/L Carbon Dioxide (21-32) mEq/L Anion Gap (5-15) BUN (7-18) mg/dL Creatinine (0.55-1.02) mg/dL Est Cr Clr Drug Dosing Estimated GFR (MDRD) (>60) mL/min BUN/Creatinine Ratio (14-18) Glucose (83-115) mg/dL Lactic Acid (0.4-2.0) mmol/L Calcium (8.5-10.1) mg/dL Magnesium (1.8-2.4) mg/dl Total Bilirubin (0.2-1.0) mg/dL AST (15-37) U/L ALT (14-59) U/L Alkaline Phosphatase (46-116) U/L Troponin I (0.00-0.056) ng/mL C-Reactive Protein (<1.0) mg/dL NT-Pro-B Natriuret Pep (0-450) pg/mL Total Protein (6.4-8.2) g/dl Albumin (3.4-5.0) g/dl Globulin gm/dL Albumin/Globulin Ratio (1-2) Urine Color (Yellow) Urine Appearance (Clear) Urine pH (5.0-8.0) Ur Specific [place] (1.005-1.030) Urine Protein (Negative) Urine Glucose (UA) (Negative) Urine Ketones (Negative) Urine Occult Blood (Negative) Urine Nitrite (Negative) Urine Bilirubin (Negative) Urine Urobilinogen (0.2-1.0) Ur Leukocyte Esterase (Negative) Urine RBC (0-5) /hpf Urine WBC (0-5) /hpf Ur Epithelial Cells (0-5) /hpf Urine Bacteria (FEW) /hpf Urine Mucus (FEW) /hpf Result Diagrams: 12/23/17 11:02 12/23/17 11:02 - Problem List (1) Acute hypernatremia SNOMED Code(s): 9396983 ICD Code: E87.0 - HYPEROSMOLALITY AND HYPERNATREMIA Status: Acute Priority: High Current Visit: Yes (2) Chronic renal insufficiency, stage III (moderate) SNOMED Code(s): 934858991 ICD Code: N18.3 - CHRONIC KIDNEY DISEASE, STAGE 3 (MODERATE) Status: Acute Priority: High Current Visit: Yes (3) Congestive heart failure SNOMED Code(s): 78269867 ICD Code: I50.9 - HEART FAILURE, UNSPECIFIED Status: Acute Priority: Medium Current Visit: Yes Qualifiers: Heart failure type: diastolic Heart failure chronicity: chronic Qualified Code(s): I50.32 - Chronic diastolic (congestive) heart failure (4) Hypokalemia due to inadequate potassium intake SNOMED Code(s): 54803138 ICD Code: E87.6 - HYPOKALEMIA Status: Acute Priority: High Current Visit: Yes (5) Sepsis SNOMED Code(s): 90582539 ICD Code: A41.9 - SEPSIS, UNSPECIFIED ORGANISM Status: Acute Current Visit: Yes Qualifiers: Sepsis type: sepsis due to unspecified organism Qualified Code(s): A41.9 - Sepsis, unspecified organism (6) TIA (transient ischemic attack) SNOMED Code(s): 402805769 ICD Code: G45.9 - TRANSIENT CEREBRAL ISCHEMIC ATTACK, UNSPECIFIED Status: Chronic Priority: High Current Visit: No Qualifiers: Transient cerebral ischemia type: unspecified Qualified Code(s): G45.9 - Transient cerebral ischemic attack, unspecified (7) Dementia SNOMED Code(s): 87935724 ICD Code: F03.90 - UNSPECIFIED DEMENTIA WITHOUT BEHAVIORAL DISTURBANCE Status: Chronic Priority: Medium Current Visit: No (8) COPD (chronic obstructive pulmonary disease) SNOMED Code(s): 23141028 ICD Code: J44.9 - CHRONIC OBSTRUCTIVE PULMONARY DISEASE, UNSPECIFIED Status : Chronic Priority: Medium Current Visit: No Qualifiers: COPD type: unspecified COPD Qualified Code(s): J44.9 - Chronic obstructive pulmonary disease, unspecified (9) HTN (hypertension) SNOMED Code(s): 95835465 ICD Code: I10 - ESSENTIAL (PRIMARY) HYPERTENSION Status: Chronic Priority : Low Current Visit: No Qualifiers: Hypertension type: unspecified Qualified Code(s): I10 - Essential (primary ) hypertension (10) Urinary incontinence SNOMED Code(s): 620626261 ICD Code: R32 - UNSPECIFIED URINARY INCONTINENCE Status: Chronic Priority : Medium Current Visit: No Qualifiers: Urinary Incontinence type: unspecified incontinence Qualified Code(s): R32 - Unspecified urinary incontinence (11) Alzheimer disease SNOMED Code(s): 10077406 ICD Code: G30.9 - ALZHEIMER'S DISEASE, UNSPECIFIED; F02.80 - DEMENTIA IN OTH DISEASES CLASSD ELSWHR W/O BEHAVRL DISTURB Status: Chronic Priority: Medium Current Visit: Yes Qualifiers: Alzheimer's disease onset: unspecified onset Dementia behavioral disturbance: without behavioral disturbance Qualified Code(s): G30.9 - Alzheimer's disease, unspecified; F02.80 - Dementia in other diseases classified elsewhere without behavioral disturbance (12) Anxiety SNOMED Code(s): 63555771 ICD Code: F41.9 - ANXIETY DISORDER, UNSPECIFIED Status: Chronic Priority : Low Current Visit: No (13) Psychosis SNOMED Code(s): 06257874 ICD Code: F29 - UNSP PSYCHOSIS NOT DUE TO A SUBSTANCE OR KNOWN PHYSIOL COND Status: Chronic Priority: Medium Current Visit: No Qualifiers: Psychosis type: schizophrenia Schizophrenia type: unspecified Qualified Code(s): F20.9 - Schizophrenia, unspecified (14) Schizophrenia SNOMED Code(s): 38518150 ICD Code: F20.9 - SCHIZOPHRENIA, UNSPECIFIED Status: Chronic Priority: Medium Current Visit: Yes Qualifiers: Schizophrenia type: unspecified Qualified Code(s): F20.9 - Schizophrenia, unspecified (15) History of MRSA infection SNOMED Code(s): 537514505, 890617040 ICD Code: Z86.14 - PERSONAL HISTORY OF METHICILLIN RESIS STAPH INFECTION Status: Chronic Priority: Medium Current Visit: No Problem List Initiated/Reviewed/Updated: Yes Orders Last 24hrs: Active Orders 24 hr Category Date Time Status Admission Status [Patient Status] [ADT] Routine ADT 12/23/17 13:02 Active EKG Documentation Completion [RC] STAT Care 12/23/17 10:46 Active Insert Bal Catheter [Insert Urinary Catheter] [OM.PC] Care 12/23/17 11:45 Ordered Stat Oxygen Therapy [RC] ASDIRECTED Care 12/23/17 10:46 Active Urinary Catheter Assessment [RC] ASDIRECTED Care 12/23/17 11:45 Active Chest 1V Frontal [CR] Stat Exams 12/23/17 10:45 Taken CULTURE BLOOD [BC] Stat Lab 12/23/17 11:02 Received CULTURE BLOOD [BC] Stat Lab 12/23/17 11:08 Received CULTURE URINE [RM] Stat Lab 12/23/17 11:50 Received URINALYSIS W/MICROSCOPIC [UA W/MICROSCOPIC] [URIN] Stat Lab 12/23/17 11:50 Ordered Potassium Chloride [KCl 10 MEQ in Water 100 ML] 10 meq Med 12/23/17 12:15 Active Premix Bag 1 bag IV ASDIRECTED Sodium Chloride 0.9% [Normal Saline] 1,000 ml Med 12/23/17 11:00 Active IV ASDIRECTED Vancomycin 0.75 gm Med 12/23/17 12:45 Active Sodium Chloride 0.9% [Normal Saline] 250 ml IV ONETIME Blood Culture x2 Reflex Set [OM.PC] Stat Oth 12/23/17 10:47 Ordered Medication Orders Sodium Chloride (Normal Saline) 1,000 mls @ 500 mls/hr IV ASDIRECTED LATOSHA Last Admin: 12/23/17 12:41 Dose: 500 mls/hr Potassium Chloride 10 meq/ (Premix) 100 mls @ 100 mls/hr IV ASDIRECTED [facility] Last Admin: 12/23/17 12:41 Dose: 100 mls/hr Vancomycin HCl 0.75 gm/ Sodium (Chloride) 250 mls @ 250 mls/hr IV ONETIME ONE Stop: 12/23/17 13:44 Assessment/Plan Comment:: I/P: Acute: End of life care -Listed as DNR/DNI on [facility] paperwork -Discharged 12/24/16 from our facility on comfort care - Noted discussion with POA -Contacted POA on 12/23/17 to discuss code status - wants comfort cares -Discussed antibiotic, current electrolyte levels, outcomes of no treatment, ect. - still requests comfort care -"When she was more alert before we discussed this and she said she just wants to be done." -Discharge tomorrow 12/24/17 back to [facility] Sepsis -Urinary vs. Pneumonia as cause -Non-verbal now, usually has dementia but is responsive -Fever, poor oral intake, hypoxia -Vancomycin and rocephin started in ED - stop for comfort care -IV Fluids as ordered -WBC 14.36 -CRP 22.7 -Lactic acid 2.1 -70% neutrophils, 21% band neutrophils -Blood culture pending -Rectal tylenol for fever UTI -Questionable -Hx/o urinary incontinence -UA obtained in ED was noted to be foul-smelling and very dark -Urine concentrated -Negative leukocyte esterase and nitrite -5-10 WBC -Many bacteria -Rocephin and Vancomycin given in ED - stop for comfort care -IV fluids as ordered -Culture pending Questionable infiltrate -No cough noted in SNF -Right perihilar infiltrate on portable CXR - formal radiologist read pending -Vancomycin and rocephin given in ED will cover - stop for comfort care -RT/Duonebs -NPO for now due to AMS Hypernatremia -Sodium 156 -D5LR with potassium for now Hypokalemia -Potassium 3.0 -Supplement via IV fluids Altered mental status -Reportedly has dementia and is usually verbal -Non-verbal here - makes eye contact but cannot seem to find words -Likely 2/2 above -NPO for now -Continue to monitor Elevated BNP -BNP 1577 in ED -Echo obtained 12/05/2016 1. LVEF, by visual estimate is 65-70%. 2. Grade 1 pattern of LV diastolic filling. 3. Trace mitral valve regurgitation 4. Trace tricuspid valve regurgitation 5. No intracavity filling defects or intracardiac shunts. -No leg swelling Chronic: dysphagia hypertension COPD urinary incontinence abnormal gait Alzheimer's disease TIA tremors cerebral infarction anxiety dementia psychosis schizophrenia. History of positive MRSA wound to her Buttocks Plan: Admit to medical floor on telemetry CM/SW for discharge planning Spiritual care consult Other orders as indicated above NPO for now as AMS Discharge on 12/24/17 on comfort care back to [facility] Code status: DNR/DNI/Comfort Care; PCP: Dr. Leiva Once Elana was in her room it was noted in her prior visit last year that she was discharged to [facility] on comfort care during her last visit. This was noted both in the discharge summary and case management notes. Her POA Jesenia Pendleton was contacted and I did verify that she should be comfort care. I explained that this would mean we would stop the antibiotic and all other treatments. She would be kept comfortable and sent back to [facility]. Her POA agrees and states this is what she would want. She says the patient has been non -verbal on multiple prior visits with her and that on a prior visit she when the patient was more alert and they were talking she stated she "just wants to be done." Her POA stated she believes this is what Elana would want at this point. Status was changed in computer and orders were discontinued. Will offer morphine for pain and IV fluids.
[2017-12-23] MEDS ORDERED: Ondansetron 4 MG/2 ML SDV IV PRN (14:02)
[2017-12-23] MEDS ORDERED: Acetaminophen 650 MG Supp RECTAL PRN (14:02)
[2017-12-23] MEDS ORDERED: Albuterol/Ipratropium 3.0-0.5 MG/3 ML Neb Soln NEB PRN (14:02)
[2017-12-23] MEDS ORDERED: hydrALAZINE 20 MG/ML SDV IVPUSH PRN (14:13)
[2017-12-23] MEDS ORDERED: Metoprolol Tartrate 5 MG/5 ML SDV IVPUSH PRN (14:13)
[2017-12-23] MEDS ORDERED: Morphine 2 MG/ML Syringe IVPUSH PRN (15:54)
[2017-12-23] MEDS: Dextrose 5%-Lact Ringers w/KCl 1,000 ML IV SCH (15:59)
[2017-12-23] MEDS ORDERED: Bisacodyl 10 MG Supp RECTAL PRN (17:52)
[2017-12-23] MEDS: Albuterol 6.7 GM Inhaler INH SCH (20:33)
[2017-12-23] MEDS: Hypromellose 0.5% Ophth Soln 15 ML Bottle EYEBOTH SCH (20:38)
[2017-12-23] MEDS ORDERED: ALBUTEROL IH SCH (21:00)
[2017-12-23] MEDS ORDERED: IPRATROPIUM IH SCH (21:00)
[2017-12-24] MEDS: Dextrose 5%-Lact Ringers w/KCl 1,000 ML IV SCH (02:02)
--- NOTE | 2017-12-24 06:40 | PCM.DCSUM1 ---
Discharge Summary - Hospital Course HPI Initial Comments: Elana Howard is an 82 yo female who presents to our ED today (12/23/17) via ambulance from a local fdc. Staff reports she developed an illness with the last 48 hours and was complaining of decreased appetite yesterday. Overnight she developed a fever and hypoxia. Saturations were found to be around 84% on room air. She has known dementia but is now nonverbal. She wakes I contacted his understanding she does not speak staff reports she has not ate or drank much in the last 48 hours. She does have a history ofcongestive heart failure and COPD. She received Tylenolthis morning around 6: 30 AM. Rectal temperature in ED was 100although she feels much warmer than this. No cough or history of aspiration pneumonia. In the ED oxygen saturatios were 84% on room air. She was placed on 3 L via cannula and may increase to 93%. Blood pressure is 105/65. Respirations were 30. Heart rate was 90. 12-lead EKG was obtained which show sinus rhythm at 90 bpm. There is early R-wave transition noticed. Consider right ventricular versus septal hypertrophy pattern. There is left ventricular hypertrophy pattern. There is minimal ST segment depression in leads II, III, and aVF. T- wave flattening is noted in I and aVL. T-wave inversion in V2 to V6 compatible with possible ischemia. QT is normal. Labs are obtained: WBCs are elevated at 14.36. Hemoglobin 14.1. Hematocrit 45.7. She is normocytic. Platelets are good at 236,000. Neutrophils are elevated at 70%. 21% band neutrophils are noted. PT is 12.1. INR 1.1. Sodium is 156 which is very high. Potassium is low at 3.0. Chloride is high at 121. Carbon dioxide 23. Anion gap 15. BUN is high at 48. Creatinine 1.6. EGFR 31. Glucose is high at 176. Calcium is low at 8.1. Magnesium is high at 2.5. AST 17 ALT is 17, alkaline phosphatase is 93. Troponin is less than 0.017. CRP is elevated at 22.7. Protein is low at 5.7. Albumin is 2.2. Lactic acid is slightly elevated at 2.1. BNP is elevated at 1577. UA is obtained which shows concentrated urine, 2+ urine protein, 1+ urine bilirubin, 5-10 WBCs, and many urine bacteria. ABGs obtained the left radial with a pH of 7.45. PCO2 is 36.7. PO2 is 65. Bicarbonate is 25.2. O2 saturation is 93.1. Base excess is 1.1. This is obtained on 4 L. FiO2 is 36. She started on normal saline, potassium, and vancomycin. Tylenol Rocephin are also given. Bladder scan was obtained and shows urine retention. Barreto catheter was placed. Portable chest x-ray is obtained and shows hyperinflated lung barker infiltrate is noted in the right perihilar area. She is quite rotated during this radiograph. UA when obtaining was noted to be foul -smelling and dark in color. Urine cultures ordered. she carries a history of: ysphagia, hypertension,COPD, urinary incontinence, abnormal gait, Alzheimer's disease, TIA, tremors, cerebral infarction, anxiety, dementia, psychosis, schizophrenia. History of positive MRSA wound to her Buttocks. She is a former smoker. She is subsequently admitted to the medical floor on telemetry. CODE STATUS is DNR/DNI. PCP is Dr. Leiva. Diagnosis: Stroke: No - Discharge Data Discharge Date: 12/24/17 (Admit date: 12/23/17) Discharge Disposition: DC/Tfer to SNF 03 Condition: Poor - Discharge Diagnosis/Problem(s) (1) Acute hypernatremia SNOMED Code(s): 0524914 ICD Code: E87.0 - HYPEROSMOLALITY AND HYPERNATREMIA Status: Acute Priority: High Current Visit: Yes (2) Chronic renal insufficiency, stage III (moderate) SNOMED Code(s): 928655763 ICD Code: N18.3 - CHRONIC KIDNEY DISEASE, STAGE 3 (MODERATE) Status: Acute Priority: High Current Visit: Yes (3) Congestive heart failure SNOMED Code(s): 41557594 ICD Code: I50.9 - HEART FAILURE, UNSPECIFIED Status: Acute Priority: Medium Current Visit: Yes Qualifiers: Heart failure type: diastolic Heart failure chronicity: chronic Qualified Code(s): I50.32 - Chronic diastolic (congestive) heart failure (4) Hypokalemia due to inadequate potassium intake SNOMED Code(s): 80741833 ICD Code: E87.6 - HYPOKALEMIA Status: Acute Priority: High Current Visit: Yes (5) Sepsis SNOMED Code(s): 22768622 ICD Code: A41.9 - SEPSIS, UNSPECIFIED ORGANISM Status: Acute Current Visit: Yes Qualifiers: Sepsis type: sepsis due to unspecified organism Qualified Code(s): A41.9 - Sepsis, unspecified organism (6) TIA (transient ischemic attack) SNOMED Code(s): 041195855 ICD Code: G45.9 - TRANSIENT CEREBRAL ISCHEMIC ATTACK, UNSPECIFIED Status: Chronic Priority: High Current Visit: No Qualifiers: Transient cerebral ischemia type: unspecified Qualified Code(s): G45.9 - Transient cerebral ischemic attack, unspecified (7) Dementia SNOMED Code(s): 35863364 ICD Code: F03.90 - UNSPECIFIED DEMENTIA WITHOUT BEHAVIORAL DISTURBANCE Status: Chronic Priority: Medium Current Visit: No (8) COPD (chronic obstructive pulmonary disease) SNOMED Code(s): 56505421 ICD Code: J44.9 - CHRONIC OBSTRUCTIVE PULMONARY DISEASE, UNSPECIFIED Status : Chronic Priority: Medium Current Visit: No Qualifiers: COPD type: unspecified COPD Qualified Code(s): J44.9 - Chronic obstructive pulmonary disease, unspecified (9) HTN (hypertension) SNOMED Code(s): 73065463 ICD Code: I10 - ESSENTIAL (PRIMARY) HYPERTENSION Status: Chronic Priority : Low Current Visit: No Qualifiers: Hypertension type: unspecified Qualified Code(s): I10 - Essential (primary ) hypertension (10) Urinary incontinence SNOMED Code(s): 101346670 ICD Code: R32 - UNSPECIFIED URINARY INCONTINENCE Status: Chronic Priority : Medium Current Visit: No Qualifiers: Urinary Incontinence type: unspecified incontinence Qualified Code(s): R32 - Unspecified urinary incontinence (11) Alzheimer disease SNOMED Code(s): 75532627 ICD Code: G30.9 - ALZHEIMER'S DISEASE, UNSPECIFIED; F02.80 - DEMENTIA IN OTH DISEASES CLASSD ELSWHR W/O BEHAVRL DISTURB Status: Chronic Priority: Medium Current Visit: Yes Qualifiers: Alzheimer's disease onset: unspecified onset Dementia behavioral disturbance: without behavioral disturbance Qualified Code(s): G30.9 - Alzheimer's disease, unspecified; F02.80 - Dementia in other diseases classified elsewhere without behavioral disturbance (12) Anxiety SNOMED Code(s): 08349491 ICD Code: F41.9 - ANXIETY DISORDER, UNSPECIFIED Status: Chronic Priority : Low Current Visit: No (13) Psychosis SNOMED Code(s): 51561535 ICD Code: F29 - UNSP PSYCHOSIS NOT DUE TO A SUBSTANCE OR KNOWN PHYSIOL COND Status: Chronic Priority: Medium Current Visit: No Qualifiers: Psychosis type: schizophrenia Schizophrenia type: unspecified Qualified Code(s): F20.9 - Schizophrenia, unspecified (14) Schizophrenia SNOMED Code(s): 65689279 ICD Code: F20.9 - SCHIZOPHRENIA, UNSPECIFIED Status: Chronic Priority: Medium Current Visit: Yes Qualifiers: Schizophrenia type: unspecified Qualified Code(s): F20.9 - Schizophrenia, unspecified (15) History of MRSA infection SNOMED Code(s): 535477266, 614564743 ICD Code: Z86.14 - PERSONAL HISTORY OF METHICILLIN RESIS STAPH INFECTION Status: Chronic Priority: Medium Current Visit: No - Patient Summary/Data Consults: Consultations 12/23/17 14:02 Consult to Air Quality Engineer [CONS] Routine Consult to Spiritual Care [CONS] Routine Respiratory Care Assess and Treatment [CONS] Routine 12/23/17 14:46 Consult to Occupational Therapy [OT Evaluation and Treatment] [CONS] Routine PT Evaluation and Treatment [CONS] Routine Labs Pending at D/C: Urine culture, Blood cultures, respiratory viral pane, strep pneumonia Recommended Follow-up Testing/Procedures: Follow-up with primary care provider as needed. Recommend consulting hospice care if PCP feels appropriate. Hospital Course: I/P: Acute: End of life care -Listed as DNR/DNI on fdc paperwork -Discharged 12/24/16 from our facility on comfort care - Noted discussion with POA -Contacted POA on 12/23/17 to discuss code status - wants comfort cares -Discussed antibiotic, current electrolyte levels, outcomes of no treatment, ect. - still requests comfort care -"When she was more alert before we discussed this and she said she just wants to be done." -Discharge tomorrow 12/24/17 back to [facility] Sepsis -Urinary vs. Pneumonia as cause -Non-verbal now, usually has dementia but is responsive -Fever, poor oral intake, hypoxia -Vancomycin and rocephin started in ED - stop for comfort care -IV Fluids as ordered -WBC 14.36 -CRP 22.7 -Lactic acid 2.1 -70% neutrophils, 21% band neutrophils -Blood culture pending -Rectal tylenol for fever UTI -Questionable -Hx/o urinary incontinence -UA obtained in ED was noted to be foul-smelling and very dark -Urine concentrated -Negative leukocyte esterase and nitrite -5-10 WBC -Many bacteria -Rocephin and Vancomycin given in ED - stop for comfort care -IV fluids as ordered -Culture pending Questionable infiltrate -No cough noted in SNF -Right perihilar infiltrate on portable CXR - formal radiologist read pending -Vancomycin and rocephin given in ED will cover - stop for comfort care -RT/Duonebs -NPO for now due to AMS Hypernatremia -Sodium 156 -D5LR with potassium for now Hypokalemia -Potassium 3.0 -Supplement via IV fluids Altered mental status -Reportedly has dementia and is usually verbal -Non-verbal here - makes eye contact but cannot seem to find words -Likely 2/2 above -NPO for now -Continue to monitor Elevated BNP -BNP 1577 in ED -Echo obtained 12/05/2016 1. LVEF, by visual estimate is 65-70%. 2. Grade 1 pattern of LV diastolic filling. 3. Trace mitral valve regurgitation 4. Trace tricuspid valve regurgitation 5. No intracavity filling defects or intracardiac shunts. -No leg swelling Chronic: dysphagia hypertension COPD urinary incontinence abnormal gait Alzheimer's disease TIA tremors cerebral infarction anxiety dementia psychosis schizophrenia. History of positive MRSA wound to her Buttocks Plan: Admit to medical floor on telemetry CM/SW for discharge planning Spiritual care consult Other orders as indicated above NPO for now as AMS Discharge on 12/24/17 on comfort care back to [facility] Code status: DNR/DNI/Comfort Care; PCP: Dr. Leiva Once Elana was in her room it was noted in her prior visit last year that she was discharged to [facility] on comfort care during her last visit. This was noted both in the discharge summary and case management notes. Her POA Jesenia Pendleton was contacted and I did verify that she should be comfort care. I explained that this would mean we would stop the antibiotic and all other treatments. She would be kept comfortable and sent back to [facility]. Her POA agrees and states this is what she would want. She says the patient has been non -verbal on multiple prior visits with her and that on a prior visit she when the patient was more alert and they were talking she stated she "just wants to be done." Her POA stated she believes this is what Elana would want at this point. Status was changed in computer and orders were discontinued. Will offer morphine for pain and IV fluids. Nursing reports Elana slept much of the night. She did answer a few yes/no questions appropriately for nursing but otherwise was non-verbal. She has not displayed any pain. She was given IV D5LR with potassium. She has had minimal output. All other treatments were stopped last night and she was removed from telemetry. She has not had a barreto as indicated prior. She will be discharged back to [facility] today via ambulance on comfort care. She was NPO here due to her mental status. This can be re-addressed at the SNF if needed with the POA and PCP. Her medications were continued although as mentioned she has not been able to swallow and has been on NPO status. These can be held at the PCPs and POAs discretion. - Patient Instructions Diet: NPO Diet, Other: Was NPO here due to mental status. Can be re-addressed at SNF Activity: Bedrest Driving: Do Not Drive - Discharge Plan Home Medications: Home Meds Acetaminophen 650 mg PO Q6H PRN 12/24/16 [History] Bisacodyl [Dulcolax] 10 mg RECTAL DAILY PRN 12/24/16 [History] Docusate Sodium/Sennosides [Senna Plus] 8.6 - 50 mg PO BID 12/24/16 [History] Ipratropium/Albuterol Sulfate [Combivent Respimat 20-100 Mcg] 1 puff IH QID [History] Memantine HCl [Namenda] 5 mg PO BID 12/24/16 [History] Metoprolol Succinate 50 mg PO DAILY 12/24/16 [History] Omeprazole 20 mg PO DAILY 12/24/16 [History] Simethicone 80 mg PO TIDMEALS 12/24/16 [History] Amino Ac/Protein Hydr/Whey Pro [Prosource Protein] 1 oz PO TIDMEALS 12/23/17 [ History] Bisacodyl [Dulcolax] 10 mg PO DAILY PRN 12/23/17 [History] Dextran 70/Hypromellose [Artificial Tears] 1 drop EYEBOTH QID 12/23/17 [History] Nut Tx, Lact-Reduced, Iron [Boost VHC] 3 oz PO 5XDAY 12/23/17 [History] Nut.Tx.Impaired Digest Fxn [Ensure Clear] 4 oz PO TIDMEALS 12/23/17 [History] Forms: ED Department Discharge Referrals: Victor Manuel Leiva MD [Primary Care Provider] - - Discharge Summary/Plan Comment DC Time >30 min.: No - General Info Date of Service: 12/24/17 Admission Dx/Problem (Free Text: Admission Diagnosis/Problem Admission Diagnosis/Problem Sepsis due to urinary tract infection Subjective Update: In to see Elana. She is resting in bed. She opens here eyes to me calling her name. She denies any pain when asked initially but will not respond when asked again. She has been mostly non-verbal. A friend/neighbor was in last night and did say she had expressed to them as well that when she was placed at [facility] she would not want anything more done and was essentially giving up on everything. She will be discharged today back to [facility] on comfort care. Functional Status: Reports: Pain Controlled. Denies: Tolerating Diet, Ambulating, Urinating, New Symptoms - Review of Systems Systems Review Comment: Due to AMS ROS is unable to be obtained. Patient does respond "no" when asked if she is in any pain. - Patient Data Vitals - Most Recent: Last Vital Signs Temp 97.0 F 12/24/17 04:21 Pulse 74 12/24/17 04:21 Resp 16 12/24/17 04:21 BP 122/86 12/24/17 04:21 Pulse Ox 95 12/24/17 04:21 Weight - Most Recent: 110 lb 3.2 oz I&O - Last 24 hours: Intake & Output 12/23/17 12/23/17 12/24/17 14:59 22:59 06:59 Intake Total 2276 1101 Balance 2276 1101 Lab Results - Last 24 hrs: Laboratory Results - last 24 hr 12/23/17 12/23/17 12/23/17 Range/Units 11:00 11:02 11:02 WBC 14.36 H (3.98-10.04) K/mm3 RBC 4.86 (3.98-5.22) M/mm3 Hgb 14.1 (11.2-15.7) gm/L Hct 45.7 H (34.1-44.9) % MCV 94.0 (79.4-94.8) fl MCH 29.0 (25.6-32.2) pg MCHC 30.9 L (32.2-35.5) g/dl RDW Std Deviation 44.9 (36.4-46.3) fL Plt Count 236 (182-369) K/mm3 MPV 11.0 (9.4-12.3) fl Neutrophils % (Manual) 70 H (40-60) % Band Neutrophils % 21 H (0-10) % Lymphocytes % (Manual) 8 L (20-40) % Atypical Lymphs % 0 % Monocytes % (Manual) 1 L (2-10) % Eosinophils % (Manual) 0 L (0.7-5.8) % Basophils % (Manual) 0 L (0.1-1.2) Toxic Granulation 1+ slight Platelet Estimate Adequate RBC Morph Comment Normal PT 12.1 (9.5-12.1) SECONDS INR 1.11 Puncture Site ABG pH (7.35-7.45) ABG pCO2 (35.0-45.0) mmHg ABG pO2 (80.0-100.0) mmHg ABG HCO3 (22.0-26.0) meq/L ABG O2 Saturation (96.0-97.0) % ABG Base Excess (-2-2.0) Garett Test A-a Gradient mmHg O2 Delivery Device Oxygen Flow Rate FiO2 (21.00-100.00) % Sodium (136-145) mEq/L Potassium (3.5-5.1) mEq/L Chloride (98-107) mEq/L Carbon Dioxide (21-32) mEq/L Anion Gap (5-15) BUN (7-18) mg/dL Creatinine (0.55-1.02) mg/dL Est Cr Clr Drug Dosing Estimated GFR (MDRD) (>60) mL/min BUN/Creatinine Ratio (14-18) Glucose (83-115) mg/dL Lactic Acid (0.4-2.0) mmol/L Calcium (8.5-10.1) mg/dL Magnesium (1.8-2.4) mg/dl Total Bilirubin (0.2-1.0) mg/dL AST (15-37) U/L ALT (14-59) U/L Alkaline Phosphatase (46-116) U/L Troponin I (0.00-0.056) ng/mL C-Reactive Protein (<1.0) mg/dL NT-Pro-B Natriuret Pep (0-450) pg/mL Total Protein (6.4-8.2) g/dl Albumin (3.4-5.0) g/dl Globulin gm/dL Albumin/Globulin Ratio (1-2) Urine Color (Yellow) Urine Appearance (Clear) Urine pH (5.0-8.0) Ur Specific [place] (1.005-1.030) Urine Protein (Negative) Urine Glucose (UA) (Negative) Urine Ketones (Negative) Urine Occult Blood (Negative) Urine Nitrite (Negative) Urine Bilirubin (Negative) Urine Urobilinogen (0.2-1.0) Ur Leukocyte Esterase (Negative) Urine RBC (0-5) /hpf Urine WBC (0-5) /hpf Ur Epithelial Cells (0-5) /hpf Urine Bacteria (FEW) /hpf Urine Mucus (FEW) /hpf Mycoplasma pneumon IgM Negative (NEGATIVE) 12/23/17 12/23/17 12/23/17 Range/Units 11:02 11:02 11:02 WBC (3.98-10.04) K/mm3 RBC (3.98-5.22) M/mm3 Hgb (11.2-15.7) gm/L Hct (34.1-44.9) % MCV (79.4-94.8) fl MCH (25.6-32.2) pg MCHC (32.2-35.5) g/dl RDW Std Deviation (36.4-46.3) fL Plt Count (182-369) K/mm3 MPV (9.4-12.3) fl Neutrophils % (Manual) (40-60) % Band Neutrophils % (0-10) % Lymphocytes % (Manual) (20-40) % Atypical Lymphs % % Monocytes % (Manual) (2-10) % Eosinophils % (Manual) (0.7-5.8) % Basophils % (Manual) (0.1-1.2) Toxic Granulation Platelet Estimate RBC Morph Comment PT (9.5-12.1) SECONDS INR Puncture Site ABG pH (7.35-7.45) ABG pCO2 (35.0-45.0) mmHg ABG pO2 (80.0-100.0) mmHg ABG HCO3 (22.0-26.0) meq/L ABG O2 Saturation (96.0-97.0) % ABG Base Excess (-2-2.0) Garett Test A-a Gradient mmHg O2 Delivery Device Oxygen Flow Rate FiO2 (21.00-100.00) % Sodium 156 H (136-145) mEq/L Potassium 3.0 L (3.5-5.1) mEq/L Chloride 121 H (98-107) mEq/L Carbon Dioxide 23 (21-32) mEq/L Anion Gap 15.0 (5-15) BUN 48 H (7-18) mg/dL Creatinine 1.6 H (0.55-1.02) mg/dL Est Cr Clr Drug Dosing TNP Estimated GFR (MDRD) 31 (>60) mL/min BUN/Creatinine Ratio 30.0 H (14-18) Glucose 176 H (83-115) mg/dL Lactic Acid 2.1 H (0.4-2.0) mmol/L Calcium 8.1 L (8.5-10.1) mg/dL Magnesium 2.5 H (1.8-2.4) mg/dl Total Bilirubin 0.8 (0.2-1.0) mg/dL AST 17 (15-37) U/L ALT 17 (14-59) U/L Alkaline Phosphatase 93 (46-116) U/L Troponin I < 0.017 (0.00-0.056) ng/mL C-Reactive Protein 22.7 H* (<1.0) mg/dL NT-Pro-B Natriuret Pep 1577 H (0-450) pg/mL Total Protein 5.7 L (6.4-8.2) g/dl Albumin 2.2 L (3.4-5.0) g/dl Globulin 3.5 gm/dL Albumin/Globulin Ratio 0.6 L (1-2) Urine Color (Yellow) Urine Appearance (Clear) Urine pH (5.0-8.0) Ur Specific [place] (1.005-1.030) Urine Protein (Negative) Urine Glucose (UA) (Negative) Urine Ketones (Negative) Urine Occult Blood (Negative) Urine Nitrite (Negative) Urine Bilirubin (Negative) Urine Urobilinogen (0.2-1.0) Ur Leukocyte Esterase (Negative) Urine RBC (0-5) /hpf Urine WBC (0-5) /hpf Ur Epithelial Cells (0-5) /hpf Urine Bacteria (FEW) /hpf Urine Mucus (FEW) /hpf Mycoplasma pneumon IgM (NEGATIVE) 12/23/17 12/23/17 Range/Units 11:50 12:30 WBC (3.98-10.04) K/mm3 RBC (3.98-5.22) M/mm3 Hgb (11.2-15.7) gm/L Hct (34.1-44.9) % MCV (79.4-94.8) fl MCH (25.6-32.2) pg MCHC (32.2-35.5) g/dl RDW Std Deviation (36.4-46.3) fL Plt Count (182-369) K/mm3 MPV (9.4-12.3) fl Neutrophils % (Manual) (40-60) % Band Neutrophils % (0-10) % Lymphocytes % (Manual) (20-40) % Atypical Lymphs % % Monocytes % (Manual) (2-10) % Eosinophils % (Manual) (0.7-5.8) % Basophils % (Manual) (0.1-1.2) Toxic Granulation Platelet Estimate RBC Morph Comment PT (9.5-12.1) SECONDS INR Puncture Site Lt radial ABG pH 7.45 (7.35-7.45) ABG pCO2 36.7 (35.0-45.0) mmHg ABG pO2 65.0 L (80.0-100.0) mmHg ABG HCO3 25.2 (22.0-26.0) meq/L ABG O2 Saturation 93.1 L (96.0-97.0) % ABG Base Excess 1.9 (-2-2.0) Garett Test Positive A-a Gradient 119 mmHg O2 Delivery Device Nasal cannula Oxygen Flow Rate 4.0 FiO2 36.00 (21.00-100.00) % Sodium (136-145) mEq/L Potassium (3.5-5.1) mEq/L Chloride (98-107) mEq/L Carbon Dioxide (21-32) mEq/L Anion Gap (5-15) BUN (7-18) mg/dL Creatinine (0.55-1.02) mg/dL Est Cr Clr Drug Dosing Estimated GFR (MDRD) (>60) mL/min BUN/Creatinine Ratio (14-18) Glucose (83-115) mg/dL Lactic Acid (0.4-2.0) mmol/L Calcium (8.5-10.1) mg/dL Magnesium (1.8-2.4) mg/dl Total Bilirubin (0.2-1.0) mg/dL AST (15-37) U/L ALT (14-59) U/L Alkaline Phosphatase (46-116) U/L Troponin I (0.00-0.056) ng/mL C-Reactive Protein (<1.0) mg/dL NT-Pro-B Natriuret Pep (0-450) pg/mL Total Protein (6.4-8.2) g/dl Albumin (3.4-5.0) g/dl Globulin gm/dL Albumin/Globulin Ratio (1-2) Urine Color Yellow (Yellow) Urine Appearance Slt cloudy H (Clear) Urine pH 6.0 (5.0-8.0) Ur Specific [place] > or = 1.030 (1.005-1.030) Urine Protein 2+ H (Negative) Urine Glucose (UA) Negative (Negative) Urine Ketones Negative (Negative) Urine Occult Blood Negative (Negative) Urine Nitrite Negative (Negative) Urine Bilirubin 1+ H (Negative) Urine Urobilinogen 0.2 (0.2-1.0) Ur Leukocyte Esterase Negative (Negative) Urine RBC Not seen (0-5) /hpf Urine WBC 5-10 H (0-5) /hpf Ur Epithelial Cells 0-5 (0-5) /hpf Urine Bacteria Many H (FEW) /hpf Urine Mucus Few (FEW) /hpf Mycoplasma pneumon IgM (NEGATIVE) Med Orders - Current: Current Medications Acetaminophen (Tylenol) 650 mg RECTAL Q4H PRN PRN Reason: Pain (mild 1-3) Albuterol (Proventil Hfa) 0 gm INH QID LATOSHA Last Admin: 12/23/17 20:33 Dose: 1 puff Albuterol/Ipratropium (Duoneb 3.0-0.5 Mg/3 Ml) 3 ml NEB Q4H PRN PRN Reason: Shortness Of Breath/wheezing Artificial Tears (Isopto Tears 0.5% Ophth Soln) 0 ml EYEBOTH QID [facility] Last Admin: 12/23/17 20:38 Dose: 1 drop Bisacodyl (Dulcolax) 10 mg RECTAL DAILY PRN PRN Reason: Constipation Potassium Cl/Dextrose/Lact Ringer's (D5 Lr With 20 Meq Kcl) 1,000 mls @ 100 mls /hr IV ASDIRECTED [facility] Last Admin: 12/24/17 02:02 Dose: 100 mls/hr Morphine Sulfate (Morphine) 0.25 mg IVPUSH Q2H PRN PRN Reason: Pain Ondansetron HCl (Zofran) 4 mg IV Q6H PRN PRN Reason: Nausea/Vomiting Tiotropium [place] (Spiriva Handihaler) 18 mcg INH DAILY [facility] Discontinued Medications Acetaminophen (Tylenol) 650 mg RECTAL NOW ONE Stop: 12/23/17 10:49 Last Admin: 12/23/17 12:46 Dose: 650 mg Famotidine (Pepcid) 20 mg IVPUSH DAILY [facility] Hydralazine HCl (Apresoline) 10 mg IVPUSH Q6H PRN PRN Reason: Hypertension Ceftriaxone Sodium 2 gm/ (Sodium Chloride) 100 mls @ 100 mls/hr IV ONETIME ONE Stop: 12/23/17 11:48 Last Admin: 12/23/17 12:41 Dose: 100 mls/hr Sodium Chloride (Normal Saline) 1,000 mls @ 500 mls/hr IV ASDIRECTED [facility] Last Admin: 12/23/17 12:41 Dose: 500 mls/hr Potassium Chloride 10 meq/ (Premix) 100 mls @ 100 mls/hr IV ASDIRECTED [facility] Last Admin: 12/23/17 12:41 Dose: 100 mls/hr Vancomycin HCl 0.75 gm/ Sodium (Chloride) 250 mls @ 250 mls/hr IV ONETIME ONE Stop: 12/23/17 13:28 Last Admin: 12/23/17 14:42 Dose: Not Given Vancomycin HCl 0.75 gm/ Sodium (Chloride) 250 mls @ 250 mls/hr IV ONETIME ONE Stop: 12/23/17 13:44 Vancomycin HCl 0.75 gm/ Sodium (Chloride) 250 mls @ 250 mls/hr IV ONETIME ONE Stop: 12/23/17 13:44 Last Admin: 12/23/17 14:36 Dose: 250 mls/hr Ceftriaxone Sodium 2 gm/ (Sodium Chloride) 100 mls @ 100 mls/hr IV Q24H [facility] Vancomycin HCl 0.75 gm/ Sodium (Chloride) 250 mls @ 250 mls/hr IV Q48H [facility] Metoprolol Tartrate (Lopressor) 5 mg IVPUSH Q4H PRN PRN Reason: Tachycardia Non-Formulary Medication (Albuterol/Ipratropium) 1 puff IH QID [facility] Vancomycin HCl (Pharmacy To Dose - Vancomycin) 1 dose .XX ASDIRECTED [facility]OS[facility] - Exam Quality Assessment: Reports: Supplemental Oxygen General: Reports: Alert (to verbal stimuli ), No Acute Distress, Lethargic HEENT: Reports: Pupils Equal, Pupils Reactive Neck: Reports: Supple Lungs: Reports: Normal Respiratory Effort, Rales Cardiovascular: Reports: Regular Rate, Regular Rhythm GI/Abdominal Exam: Normal Bowel Sounds, Soft, Non-Tender, No Distention (Female) Exam: Deferred Rectal (Female) Exam: Deferred Extremities: Normal Inspection, Normal Range of Motion, Non-Tender, No Pedal Edema, Normal Capillary Refill Skin: Reports: Warm, Dry, Intact Neurological: Reports: No New Focal Deficit
[2017-12-24 08:16] VITALS: BP 126/59
[2017-12-24] MEDS: Albuterol 6.7 GM Inhaler INH SCH (08:38)
[2017-12-24] MEDS ORDERED: Famotidine 20 MG/2 ML SDV IVPUSH SCH (09:00)
[2017-12-24] MEDS ORDERED: Tiotropium Inhaler 18 MCG Inhalation Powder Cap Kit of 5 INH SCH (09:00)
[2017-12-24] MEDS: Hypromellose 0.5% Ophth Soln 15 ML Bottle EYEBOTH SCH (09:09)
--- NOTE | 2017-12-24 09:55 | CR ---
Chest: Portable view of the chest was obtained. Comparison: Prior chest x-ray of 12/24/16. Slight increased density within the right lung base is seen. Lungs otherwise are clear. Heart size and mediastinum are within normal limits for portable technique. Scoliosis is noted within the spine. Impression: 1. Increased density within right lung base either due to focal bronchitis or early area of pneumonia. 2. Other incidental findings. Diagnostic code #3
[2017-12-24] MEDS ORDERED: cefTRIAXone 2 GM in Sodium Chloride 0.9% 100 ML IV SCH (12:30)
== END 2017-12-24 11:51 | DRG 871 ==
LOC: JD.ED 10:16 → JD.MS 13:02 → UNDOADMIN 13:02
PROVIDERS: ADMIT Emergency Medicine; ATTEND Internal Medicine Cardiovascular Disease
DX: A41.9 Sepsis, unspecified organism (principal); J18.9 Pneumonia, unspecified organism; N39.0 Urinary tract infection, site not specified; I13.0 Hypertensive heart and chronic kidney disease with heart failure and stage 1 through stage 4 chronic kidney disease, or unspecified chronic kidney disease; I50.32 Chronic diastolic (congestive) heart failure; E87.0 Hyperosmolality and hypernatremia; N18.3 Chronic kidney disease, stage 3 (moderate); Z66 Do not resuscitate; Z51.5 Encounter for palliative care; Z79.82 Long term (current) use of aspirin; E87.6 Hypokalemia; F41.9 Anxiety disorder, unspecified; J44.9 Chronic obstructive pulmonary disease, unspecified; G30.9 Alzheimer's disease, unspecified; F02.80 Dementia in other diseases classified elsewhere, unspecified severity, without behavioral disturbance, psychotic disturbance, mood disturbance, and anxiety; F20.9 Schizophrenia, unspecified; R13.10 Dysphagia, unspecified; Z86.73 Personal history of transient ischemic attack (TIA), and cerebral infarction without residual deficits; Z86.14 Personal history of Methicillin resistant Staphylococcus aureus infection; Z79.899 Other long term (current) drug therapy; Z87.891 Personal history of nicotine dependence
CPT/HCPCS: 36415; 36600; 71045; 80053; 81001; 82803; 83605; 83735; 83880; 84484; 85007; 85027; 85610; 86140; 86738; 87040 ×2; 87086; 87899; 93005; A9270; J0696; J3480; J7030; J7040; 51798; 87486; 87581; 87633; 87798; 94640; 94664; 96365; 96368; 99285-25; J3370; J7050